=== PATIENT | female | born 1945 | race Caucasian/White ===

== ENCOUNTER → 2017-11-08 10:12 | Outpatient (CLI) | payer MEDICARE, OTHER, SELFPAY ==
[2017-11-08 12:05] LABS: Absolute Lymphocyte Count 2.23 X10^3/ul (0.83-4.51); Absolute Neutrophil Count 4.5 X10^3/uL (2.0-7.7); Basophil# 0.02 X10^3/uL; Basophil% 0.3 % (0-1); Eosinophil# 0.05 X10^3/uL; Eosinophils% 0.7 % (0-5); Hematocrit 44.7 % (37-47); Lymphocyte # 2.23 X10^3/ul (4.0); Lymphocyte % 30.3 % (19-41); Mean Corp Hgb Conc 33.6 g/gl (32-36); Mean Corpuscular Hgb 31.1 pg (27.0-32.0); Mean Corpuscular Volume 92.5 fL (81-99); Mean Platelet Vol. 9.3 fl (6.2-12.0); Monocyte# 0.56 X10^3/uL; Monocyte% 7.6 % (0-10); POSITIVE COUNT NO; POSITIVE DIFFERENTIAL NO; POSITIVE MORPHOLOGY NO; Platelet Count 389 K/mm3 (150-450); RBC Distribution Width CV 12.5 % (11.6-14.6); RBC Distribution Width SD 41.7 fl (35.1-43.9); Red Blood Count 4.83 M/mm3 (4.2-5.4); White Blood Count 7.4 K/mm3 (4.4-11.0)
[2017-11-08 12:22] LABS: Vitamin D,25 Hydroxy 54.9 ng/mL (29.95-100.01)
[2017-11-08 12:26] LABS: Anion Gap 8 (5-15); BUN 7 mg/dL (7-18); BUN/Creat Ratio 11.7 RATIO (10-20); Calcium,Total 8.9 mg/dL (8.5-10.1); Chloride 99 mmol/L (98-107); EST Glomerular Filtration Rate 104 mL/min (>60); Est Glom Filt Rate - Afr Amer 126 mL/min (>60); Glucose 93 mg/dL (74-106); Potassium 3.3 mmol/L (3.5-5.1); Sodium Level 136 mmol/L (136-145); T4 Free Direct 1.02 ng/dL (0.76-1.46); Thyroid Stim Hormone (TSH) 1.47 uIU/mL (0.358-3.74)
== END ==
PROVIDERS: Family Provider Family Medicine; PCP Family Medicine; Visit Provider Family Medicine
DX: E55.9 Vitamin D deficiency, unspecified (principal); E78.5 Hyperlipidemia, unspecified; I10 Essential (primary) hypertension; M81.0 Age-related osteoporosis without current pathological fracture
CPT/HCPCS: 36415; 80048; 82306; 84439; 84443; 85025

== ENCOUNTER → 2017-11-22 11:31 | Outpatient (CLI) | payer MEDICARE, OTHER, SELFPAY ==
[2017-11-22 15:41] LABS: Anion Gap 12 (5-15); BUN 6 mg/dL (7-18); BUN/Creat Ratio 10.8 RATIO (10-20); Calcium,Total 9.3 mg/dL (8.5-10.1); Chloride 99 mmol/L (98-107); Creatinine, Serum 0.55 mg/dL (0.55-1.02); EST Glomerular Filtration Rate 114 mL/min (>60); Est Glom Filt Rate - Afr Amer 138 mL/min (>60); Glucose 88 mg/dL (74-106); Potassium 3.4 mmol/L (3.5-5.1); Sodium Level 138 mmol/L (136-145)
== END ==
PROVIDERS: Family Provider Family Medicine; PCP Family Medicine; Visit Provider Family Medicine
DX: I10 Essential (primary) hypertension (principal)
CPT/HCPCS: 36415; 80048

== ENCOUNTER 2017-12-23 06:30 | Day surgery (SDC) | payer MEDICARE, OTHER, SELFPAY ==
[2017-12-23] VITALS (7 sets, daily range): BP systolic 88–130; BP diastolic 57–70; PULSE 76–84; RESP 16; TEMP 36.2–36.9; O2SAT 93–97
--- NOTE | 2017-12-23 08:00 | LES_PTH ---
PATIENT: DANIA NOBLE LOC: [facility] [place] U#:[id number] AGE/SX: 72/F ROOM: RE12/23/[address]: Dr. Macario Teran MD : [id number] BED: DIS: 12/23/2017 SPEC #: [id number] RECD: 12/23/17 14:50 STATUS: ARSLAN KATHY #: [id number] FERMÍN: 12/23/17 08:[address]: Macario Teran DEPT: SURGICAL PATHOLOGY RECD BY: Bree Hernández ENTERED: 12/24/17 08:49 SP TYPE: Lesion OTHR DR: Dr. Nirav Beckett MD Tissues: Cheek, NOS Procedures: Surgery Specimen Level III HEADER OPERATION: Excision infected cystic lesion left lower cheek at melolabial fold PRE-OP DIAGNOSIS: Infected cystic lesion left lower cheek at melolabial fold TISSUE SUBMITTED: Infected cystic lesion, left lower cheek at melolabial fold MICROSCOPIC DIAGNOSIS Infected cystic lesion, left lower cheek at melolabial fold, excision: Epidermal inclusion cyst. SJ:kelly 12/27/17 MICROSCOPIC DESCRIPTION Slides are reviewed. GROSS DESCRIPTION Received in fixative is one container labeled with the patient's name and designated infected cystic lesion, left lower cheek. The specimen consists of light seals skin with attached yellow fatty tissue measuring 0.9 x 0.9 cm and a depth of excision measuring 1 cm. A suture is present along one edge. This edge is inked in black ink. The opposite edge is inked in red ink. The specimen is bisected and totally submitted in one cassette. / AM:kelly 12/24/17 TC:5 CPT: 29943
[2017-12-23] MEDS: Mupirocin Ointment 22gm Tube 1 APPLIC (09:18)
--- NOTE | 2017-12-23 09:20 | PCM.IMDPSTOP ---
Immediate Post-Op Note Date of Procedure: 12/23/17 Primary Surgeon/Physician: Macario Teran manager of product: None Pre-Operative Diagnosis: 1. 1 cm infected soft tissue mass left lower cheek/chin by cervicomandibular junction at melolabial fold. 2. Smoker. Post-Operative Diagnosis: Same. Surgery/Procedure Performed:: Excision 1 cm infected soft tissue mass left lower cheek/chin by cervicomandibular junction at melolabial fold with transposition skin flap reconstruction (4 cm2). Description of Surgical Findings:: 72 year old woman presents for evaluation of an infected soft tissue mass left lower cheek/chin by cervicomandibular junction at melolabial fold that she has had for about a year. There had been some recent redness and swelling, and the infection resolved with some antibiotics. She denies any fever. She denies any recent drainage. She has been putting an Fco salve on it which she states has helped shrink the size of the lesion. Today the patient underwent excision 1 cm infected soft tissue mass left lower cheek/chin by cervicomandibular junction at melolabial fold with transposition skin flap reconstruction (4 cm2). Estimated Blood Loss: 2 ml. Specimen's removed: Infected soft tissue mass left lower cheek/chin by cervicomandibular junction at melolabial fold to Pathology and Microbiology. Drains: None. Type of Anesthesia:: Local MAC - xylocaine with epinephrine and IV sedation. - Admit VTE Documentation VTE Present on Admission: No VTE Mechan Device Prophylaxis: SCD's VTE Pharm Prophylaxis ordered?: No
--- NOTE | 2017-12-23 09:36 | PCM.DC ---
You will use the following diet at home:: No restrictions Discharge Activity: May not drive while taking narcotic pain medications., - - keep head elevated. no heavy lifting. May shower in (days): 2 May resume sexual activity in: No Restrictions Ice area for (Minutes): 5 - as needed for facial swelling. Weight Bearing Status: Weight bearing as tolerated Lifting Restrictions: 20 lbs. Keep extremity elevated above heart level: - - elelvate head. Call your doctor if your incision/area has: Continuous Slow Oozing, Sudden Increased Bleeding, Increased Pain/ Swelling, Increased Redness, Foul Smelling Discharge, Swelling at the incision site Call your doctor if you observe: Fever of 101 or Higher, Coldness, Increased Pain, Shortness of breath, Chest pain, Calf discomfort, Uncontrolled pain Suture Line Care: - - apply antibiotic ointment to suture line daily. Cleanse incision/area with: - - may get incision wet in the shower in two days. Allergies/Adverse Reactions: Allergies Sulfa (Sulfonamide Antibiotics) Adverse Reaction (Verified 12/16/17 10:16) Diarrhea BAND AID Allergy (Uncoded 12/16/17 10:18) Rash Medications to take at Discharge Biotin [Hernando Biotin] 5,000 mcg PO DAILY 10/22/14 Calcium Carbonate/Vitamin D3 [Calcium 600-Vit D3 800 Caplet] 1 ea PO DAILY 10/22/14 Cholecalciferol (VIT D3) [Vitamin D3] 2,000 unit PO DAILY 10/22/14 Cyanocobalamin (Vitamin B-12) [Vitamin B-12] 1,000 mcg SL DAILY 10/22/14 Flaxseed Oil/[place] 3,6,9 [Sv Flaxseed Oil 1,300 mg Sftgl] 1 ea PO DAILY 10/22/14 Hydrochlorothiazide [Hctz] 25 mg PO DAILY 10/22/14 Losartan Potassium [Cozaar] 100 mg PO DAILY 10/22/14 Multivitamins,Therapeutic [Multivitamin] 1 tab PO DAILY 10/22/14 Nortriptyline HCl [Pamelor] 25 mg PO QHS 10/22/14 Potassium Chloride [K-Dur] 20 meq PO TID 10/22/14 amlodipine 5 mg tablet 5 mg PO QDAY 11/24/17 psyllium seed (with dextrose) oral powder 3.4 g PO QDAY g 11/24/17 vitamin E (dl, acetate) 400 unit capsule 400 unit PO QDAY 11/24/17 L. Acidophilus/Pectin, [place] [Acidophilus-Pectin Captab] 1 each PO DAILY 12/16/17 Clindamycin HCl [Cleocin] 300 mg PO TID #21 cap 12/23/17 Lactobacillus Acidophilus/Fos [Acidophilus Probiotic Tablet] 1 ea PO BID #15 tab 12/23/17 Oxycodone HCl/Acetaminophen [Percocet 5/325] 1 tab PO 4X/DAY PRN PRN 5 Days #20 tab 12/23/17 The following prescriptions were given: Oxycodone HCl/Acetaminophen [Percocet 5/325] 1 tab PO 4X/DAY PRN PRN 5 Days #20 tab PRN Reason: Pain Lactobacillus Acidophilus/Fos [Acidophilus Probiotic Tablet] 1 ea PO BID #15 tab Clindamycin HCl [Cleocin] 300 mg PO TID #21 cap Primary Care Physician: Nirav Beckett MD [Primary Care Provider] - Test Results: Test results from this visit will be discussed in further detail at your follow-up appointment, if applicable. Please Follow Up With: Macario Teran MD When: one week. call [phone] for appt. Proposed Discharge Date: 12/23/17
--- NOTE | 2017-12-23 19:31 | PCM.OPRPT ---
Report of Operation Date of Procedure: 12/23/17 Pre-Operative Diagnosis: 1. 1 cm infected soft tissue mass left lower cheek/chin by cervicomandibular junction at melolabial fold. 2. Smoker. Post-Operative Diagnosis: Same. Surgery/Procedure Performed:: Excision 1 cm infected soft tissue mass left lower cheek/chin by cervicomandibular junction at melolabial fold with transposition skin flap reconstruction (4 cm2). Description of Surgical Findings:: 72 year old woman presents for evaluation of an infected soft tissue mass left lower cheek/chin by cervicomandibular junction at melolabial fold that she has had for about a year. There had been some recent redness and swelling, and the infection resolved with some antibiotics. She denies any fever. She denies any recent drainage. She has been putting an Yarsani salve on it which she states has helped shrink the size of the lesion. Patient was informed of the risks and complications of the procedure including alternatives to surgery. These were discussed with the patient personally. Patient voices understanding and wishes to proceed. Some of the risks and complications were included in a form from the [employer]. Encouraged patient to stop smoking as it may have deleterious effects on wound healing. materials planning analyst: None Type of Anesthesia:: Local MAC - xylocaine with epinephrine and IV sedation. Specimen's removed: Infected soft tissue mass left lower cheek/chin by cervicomandibular junction at melolabial fold to Pathology and Microbiology. Drains: None. Estimated Blood Loss (mL): 2 ml. Description of Procedure: Patient was taken to OR in supine position and was given IV sedation. Her face was prepped and draped in the usual fashion. SCD's were placed for DVT prophylaxis. Perioperative antibiotics were given intravenously. Using xylocaine with epinephrine, the infected soft tissue mass left lower cheek/chin by cervicomandibular junction at melolabial fold was infiltrated. After waiting 5 minutes for the anesthetic to take effect, I excised the mass down into the subcutaneous tissue. A lot of scar tissue was present indicative of chronic infection and was excised. No pus was seen. The mass was adherent to the underlying facial musculature and was excised off the muscle. The overlying skin was adherent to the mass and was also excised. The mass was sent to Pathology for analysis to rule out carcinoma. A portion was also sent to Microbiology for culture. A positive culture will necessitate antibiotic therapy. Hemostasis was obtained with electrocautery. I designed a transposition skin flap adjacent to the defect and parallel to the melolabial fold. Markings were infiltrated with xylocaine with epinephrine. Incisions were made and the flap was raised on a subcutaneous pedicle down to the level of the facial musculature. The flap was easily transposed into the defect with minimal tension and minimal distortion. Hemostasis was obtained with electrocautery. Once the flap was transposed into the defect, the incisions were closed in a layered fashion. The deep dermis and subcutaneous tissue was approximated with 5-0 Monocryl interrupted sutures. The skin was approximated with 6-0 Prolene simple interrupted sutures. Steri-strips were applied followed by antibiotic ointment. The size of the defect and the size of the flap needed to close the defect was 4 cm2. Patient tolerated the procedure well and was sent to PACU in satisfactory condition. She will be sent home on antibiotics and pain medication. She will keep her head elevated during the initial postop period. She will have a lifting restriction. She will followup in the office in a week for a wound check as well as for discussion of the pathology report and for removal of the sutures. Grafts/Implants Used: None. - Complications None. - Admit VTE Documentation VTE Present on Admission: No VTE Mechan Device Prophylaxis: SCD's VTE Pharm Prophylaxis ordered?: No Code Visit Surgery Charges CPT - 03628 ICD-10 - L03.211, R22.0, F17.200
== END 2017-12-23 10:27 | disposition home or self-care (01) ==
LOC: SDC 07:32 → AC 07:32
PROVIDERS: Family Provider Family Medicine; PCP Family Medicine; Visit Provider Surgery
PROC: (CPT 14040; principal; 2017-12-23 07:50)
DX: L72.0 Epidermal cyst (principal); L03.211 Cellulitis of face; F17.200 Nicotine dependence, unspecified, uncomplicated; I10 Essential (primary) hypertension
CPT/HCPCS: 00300; 14040; 87070; 87075; 87102; 87186; 87205; 87206; 88304; 88305; J7120

== ENCOUNTER → 2018-05-27 10:35 | Outpatient (CLI) | payer MEDICARE, OTHER, SELFPAY ==
[2018-05-27 12:18] LABS: Absolute Lymphocyte Count 2.27 X10^3/ul (0.83-4.51); Absolute Neutrophil Count 4.5 X10^3/uL (2.0-7.7); Basophil# 0.02 X10^3/uL; Basophil% 0.3 % (0-1); Eosinophil# 0.04 X10^3/uL; Eosinophils% 0.5 % (0-5); Hematocrit 42.1 % (37-47); Hemoglobin 14.2 g/dl (12.0-15.0); Lymphocyte # 2.27 X10^3/ul (4.0); Lymphocyte % 30.5 % (19-41); Mean Corp Hgb Conc 33.7 g/gl (32-36); Mean Corpuscular Hgb 31.3 pg (27.0-32.0); Mean Corpuscular Volume 92.9 fL (81-99); Mean Platelet Vol. 9.2 fl (6.2-12.0); Monocyte# 0.63 X10^3/uL; Monocyte% 8.5 % (0-10); Neutrophil # 4.47 X10^3/uL (2.7-7.7); Neutrophil % 60.1 % (47-70); Platelet Count 392 K/mm3 (150-450); RBC Distribution Width CV 12.2 % (11.6-14.6); RBC Distribution Width SD 40.9 fl (35.1-43.9); Red Blood Count 4.53 M/mm3 (4.2-5.4); White Blood Count 7.4 K/mm3 (4.4-11.0)
[2018-05-27 12:20] LABS: POSITIVE COUNT NO; POSITIVE DIFFERENTIAL NO; POSITIVE MORPHOLOGY NO
[2018-05-27 12:36] LABS: Anion Gap 9 (5-15); BUN 8 mg/dL (7-18); BUN/Creat Ratio 14.4 RATIO (10-20); Calcium,Total 9.3 mg/dL (8.5-10.1); Chloride 100 mmol/L (98-107); Creatinine, Serum 0.56 mg/dL (0.55-1.02); EST Glomerular Filtration Rate 113 mL/min (>60); Est Glom Filt Rate - Afr Amer 137 mL/min (>60); Glucose 102 mg/dL (74-106); Potassium 3.3 mmol/L (3.5-5.1); Sodium Level 134 mmol/L (136-145); Thyroid Stim Hormone (TSH) 1.48 uIU/mL (0.358-3.74)
--- OUTSIDE RECORDS SUMMARY | 2018-07-31 19:23 | XMS RPT_ITS ---
:1945 Author Organization OHIP Care Team Providers Name Role Phone THONG BRITT Admitting Unavailable THONG BRITT Attending Unavailable THONG BRITT Referring Unavailable THONG BRITT Attending Unavailable THONG BRITT Referring Unavailable Nirav Beckett Attending Unavailable Sujit, Nirav Primary Care Unavailable Nirav Beckett Attending Unavailable Sujit, Nirav Primary Care Unavailable Nirav Beckett Attending Unavailable Sujit, Nirav Primary Care Unavailable Ziyad Teran Attending Unavailable Sujit, Nirav Referring Unavailable Sujit, Nirav Primary Care Unavailable Ziyad Teran Attending Unavailable Ziyad Teran Referring Unavailable Sujit, Nirav Primary Care Unavailable Ziyad Teran Attending Unavailable Sujit, Nirav Primary Care Unavailable Ziyad Teran Consulting Unavailable Sujit, Nirav Referring Unavailable Ziyad Teran Attending Unavailable Sujit, Nirav Referring Unavailable Sujit, Nirav Primary Care Unavailable Ziyad Teran Attending Unavailable Nirav Beckett Referring Unavailable Nirav Beckett Primary Care Unavailable PROBLEMS PROBLEMS DATE TYPE CONDITION / CODE ATTENDING STATUS SOURCE 05/17/2018 Active Pain in left THONG BRITT Active [facility] finger(s) / Clinic Other M79.645(ICD-10) [facility] 05/17/2018 Active Primary THONG BRITT Active [facility] osteoarthritis, left Clinic Other hand / [facility] M19.042(ICD-10) Repository 05/27/2018 Unknown I10 - Essential Nirav Beckett Active [place] (primary) Community hypertension / Hospital I10(ICD-10) Repository 05/27/2018 Unknown F41.9 - Anxiety Nirav Beckett Active [place] disorder, Community unspecified / Hospital F41.9(ICD-10) Repository 05/27/2018 Unknown E87.6 - Hypokalemia Nirav Beckett Active [place] / E87.6(ICD-10) [facility] Hospital Repository 05/27/2018 Unknown R53.83 - Other Nirav Beckett Active [place] fatigue / Community R53.83(ICD-10) Hospital Repository 05/16/2018 Active Pain, unspecified / NA Active [facility] R52(ICD-10) Clinic Main [facility] Repository 12/26/2017 Unknown G89.18 - Other acute Ziyad Teran Active [place] postprocedural pain Community / G89.18(ICD-10) Hospital Repository PROCEDURES PROCEDURES No Procedure Records FoundRESULTS RESULTS ANES POST Observed: 06/03/2018 Status: COMPLETED Source: [facility] 5:42 PM CLINIC OTHER CAMPUS REPOSITORY HNO ID: [id number] Author: Ellis Sanchez Service: Anesthesiology Author Type: Anesthesiologist Type: Anesthesia PostOp Filed: 06/03/2018 5:42 PM Note Text: POST ANESTHESIA EVALUATION NOTE SERVICE DATE: 06/03/2018 SERVICE TIME: 3 : 1945 Vitals: 06/03/18 1208 06/03/18 1400 06/03/18 1515 Temp: 36.3 ?C (97.3 ?F) 36.4 ?C (97.5 ?F) 36.5 ?C (97.7 ?F) 06/03/18 1400 06/03/18 1415 06/03/18 1430 06/03/18 1515 BP: 130/62 137/63 136/66 135/65 06/03/18 1400 06/03/18 1415 06/03/18 1430 06/03/18 1515 Pulse: 91 83 78 72 06/03/18 1400 06/03/18 1415 06/03/18 1430 06/03/18 1515 Resp: 16 16 16 16 06/03/18 1400 06/03/18 1415 06/03/18 1430 06/03/18 1515 SpO2: 97% 97% 97% 99% Validated Vital Signs: Yes POST ANES STATUS: No apparent anesthetic complications. The patient is appropriately hydrated with stable respiratory and cardiovascular status. Patient has safe and adequate airway control. The patient has appropriate pain relief and no significant post operative nausea or vomiting. The patient has achieved baseline mental status. Further assessment by Anesthesia Service: None Other Remarks: SIGNATURE: Ellis Sanchez MD PATIENT NAME: Nelly Noble DATE: June 03, 2018 TIME: 5:42 PM PAGER/CONTACT #: [id number] PT ED Observed: 06/03/2018 Status: COMPLETED Source: [place] 3:00 PM [facility] REPOSITORY HNO ID: [id number] Author: Veronica DawsonRn) Luisito RN Service: Nursing Author Type: Registered Nurse Type: Patient Education Filed: 06/03/2018 3:37 PM Note Text: POST OP LEARNING RESPONSE INSTRUCTION PROVIDED TO: Patient METHOD OF INSTRUCTION: Individual instruction PATIENT / FAMILY RESPONSE: Verbalizes understanding of: POST-OPERATIVE INSTRUCTIONS-Correct actions to take to reduce postoperative complications FOLLOW-UP PLAN: Complete - No need for follow-up SUPPLEMENTAL MATERIAL: None REFERRAL (RECOMMENDATION): None Electronically Signed By: Veronica Jorge RN In Department: [facility] NURSING PROG Observed: 06/03/2018 Status: COMPLETED Source: [place] 2:00 PM [facility] REPOSITORY HNO ID: [id number] Author: Veronica DawsonRn) CONNOR Jorge Service: Nursing Author Type: Registered Nurse Type: Nursing Progress Note Filed: 06/03/2018 3:33 PM Note Text: 1400 pt to PACU. AANDOx3. RESTREPO TCx4. Denies pain. L hand drsg DANDI. Elevated on pillow with ice pack on. +cap refill +sensation. VSS no s/sx of distress. 1500 d/c instructions given with @ BS. PIV d/c'd drsg on. 1520 pt d/c'd to home via wheelchair. XR FLUOROSCOPY Observed: 06/03/2018 Status: F Source: [place] 1:46 PM [facility] REPOSITORY * * *Final Report* * * DATE OF EXAM: Jun 03 2018 1:46PM MDR [id number] - XR FLUOROSCOPY / PROCEDURE REASON: LEFT THUMB IP JOINT FUSION * * * * Physician Interpretation * * * * INDICATION: LEFT THUMB IP JOINT FUSION TECHNIQUE: Fluoroscopy with 2 views of the left thumb Fluoroscopic Radiation Summary: Plane A, Air Kerma: 62.1 mGy Dose Area Product (DAP): 0.0 mGy*cmS2 Fluoro time: 3:29 min:sec FINDINGS/ IMPRESSION: Arthrodesis of the 1st IP joint with cannulated screw. Please refer to the performing LIP's report. Email Marketer: KAIT Transcribe Date/Time: Jun 03 2018 1:59P Dictated by : ZIYAD MC MD This examination was interpreted and the report reviewed and electronically signed by: ZIYAD MC MD on Jun 03 2018 1:59PM EST [id number] PT ED Observed: 06/03/2018 Status: COMPLETED Source: [place] 12:16 PM [facility] REPOSITORY HNO ID: [id number] Author: Desiree Mcintosh RN Service: (none) Author Type: Registered Nurse Type: Patient Education Filed: 06/03/2018 12:17 PM Note Text: PROCEDURE/SURGERY: left thumb artrodesis READINESS TO LEARN COGNITIVE ABILITY: Alert and oriented MOTIVATION TO LEARN: Eager FAMILY SUPPORT: High - Very involved in pt care PATIENT LEARNS BEST BY: Verbal Instruction FACTORS AFFECTING LEARNING: None PHYSICAL LIMITATIONS AFFECTING LEARNING: None Electronically Signed By: Desiree Mcintosh RN In Department: [facility] SURGERY NURSING PROG Observed: 06/03/2018 Status: COMPLETED Source: [place] 12:14 PM [facility] REPOSITORY HNO ID: [id number] Author: Desiree Ivey) CONNOR Mcintosh Service: (none) Author Type: Registered Nurse Type: Nursing Progress Note Filed: 06/03/2018 12:16 PM Note Text: @ 1146 Pt received to ASCU, ambulatory AND steady. Pt pleasant AND cooperative with care. @ 1215 Ready for procedure - @ bedside. ANES PREOP Observed: 06/03/2018 Status: COMPLETED Source: [facility] 11:34 AM CLINIC OTHER CAMPUS REPOSITORY O ID: [id number] Author: Ellis Sanchez Service: Anesthesiology Author Type: Anesthesiologist Type: Anesthesia PreOp Filed: 06/03/2018 11:34 AM Note Text: ANESTHESIOLOGY DAY OF SURGERY NOTE SERVICE DATE: 06/03/2018 SERVICE TIME: 11:34 AM : 1945 Procedure(s) (LRB): ARTHRODESIS INTERPHALANGEAL JOINT (Left) Surgeon(s): Thong Britt Estimated body mass index is 27.51 kg/m? as calculated from the following: Height as of 05/20/18: 149.9 cm (4' 11). Weight as of 05/20/18: 61.8 kg (136 lb 3.2 oz). Most recent hematocrit and potassium results: Hematocrit 41.4 04/05/2013 Potassium 3.6 04/05/2013 ANES DOS/PREOP NOTE: Vitals: There were no vitals filed for this visit. ACTIVE PROBLEM LIST Essential Hypertension, Benign Myalgia and Myositis, Unspecified Osteoporosis, Unspecified Other Affections of Shoulder Region, Not Elsewhere Classified Primary Localized Osteoarthrosis, Lower Leg Family History of Other Condition Tobacco Use Disorder Family History of Malignant Neoplasm of Gastrointestinal Tract Hyperlipidemia Pain in Limb Dermatophytosis of Nail Onychia and Paronychia of Toe Pain of Left Thumb Osteoarthritis of Finger, Left PAST MEDICAL HISTORY Diagnosis Date - Esophageal reflux Gastroesophageal reflux - Essential hypertension, benign - Mixed hyperlipidemia Hyperlipidemia - Myalgia and myositis, unspecified Fibromyalgia (myalgia and myositis) - Osteoarthrosis, unspecified whether generalized or localized, other specified sites Osteoarthritis - Osteoporosis, unspecified Osteoporosis PAST SURGICAL HISTORY Procedure Laterality Date - APPENDECTOMY - KNEE SCOPE,DIAGNOSTIC 09/30/2005 Arthroscopy, knee LEFT - PAST SURGICAL HISTORY OF bunionectomy left foot - PAST SURGICAL HISTORY OF uterus removed - TOTAL KNEE REPLACEMENT 01/28/09 [place] [facility]. Left side FAMILY HISTORY Problem Relation Age of Onset - Hypertension Mother - Osteoporosis Mother - Alzheimer's Disease Mother - other (Other) Father unknown - Alzheimer's Disease Maternal Aunt - Alzheimer's Disease Maternal Aunt - Alzheimer's Disease Maternal Aunt Social History: Social History Substance Use Topics - Smoking status: Current Every Day Smoker Packs/day: 0.50 Years: 45.00 Types: Cigarettes - Smokeless tobacco: Never Used - Alcohol use Yes Comment: 1 glass of red wine every day No current facility-administered medications on file prior to encounter. Current Outpatient Prescriptions on File Prior to Encounter: amLODIPine (NORVASC) 5 mg tablet Take 1 tablet by mouth once daily. biotin 5,000 mcg ODT Take 1 tablet by mouth once daily. potassium chloride SR (K-DUR) 20 mEq tablet Take 1 tablet by mouth three times daily. hydrochlorothiazide 25 mg tablet Take 1 tablet by mouth once daily. nortriptyline 25 mg capsule Take 1 capsule by mouth daily at bedtime. losartan (COZAAR) 100 mg tablet Take 1 tablet by mouth once daily. Cholecalciferol, Vitamin D3, (VITAMIN D-3) 2,000 unit ORAL Cap Take 1 capsule by mouth twice daily. COENZYME Q10-RED YEAST RICE 60 MG-600 MG CAP take two tabs daily GARLIC TAB pt takes 650mg daily vitamin b complex(B COMPLEX-VITAMIN B12 TAB) Take one(1) tablet daily. FOLIC ACID 1 MG TAB Take one(1) tablet daily. OTC PRODUCT calcium 1800 daily FLAXSEED OIL Take one(1) tablet daily. VITAMIN B-6 100 MG TAB Take one(1) tablet daily. DAILY MULTIVITAMIN TAB Take one(1) tablet daily. No current facility-administered medications for this encounter. Allergies: ALLERGIES Allergen Reactions - Thais [Fexofenadi* Vomiting - Augmentin [Amoxicil* Diarrhea - Diovan [Valsartan] Intolerance excessive sweating - Lipitor [Atorvastat* MYALGIA'S - Prinivil [Lisinopri* Rash, Cough - Sulfabenzamide Rash - Sulindac Hives - Zocor [Simvastatin] Intolerance DOS EXAM: Adequate NPO status: Yes Anesthetic risks, benefits, alternatives, personnel and consent discussed: Yes Patient agrees to proceed: Yes Previous Anesthesia: No history of adverse event. Airway Assessment: MP 2; Neck ROM: Full ROM without neurologic symptoms; Airway Evaluation: No significant abnormalities Symptoms of Sleep Apnea: None Dentition: Teeth intact Additional Physical Exam: Lungs: Patient health status unchanged since recent history and physical. See history and physical for exam findings. Cardiac: Patient health status unchanged since recent history and physical. See history and physical for exam findings. Additional Pertinent Findings: N/A Blood Products: Not anticipated for this procedure. Anesthetic Plan: General, Standard ASA Monitors Pain Management Plan: Parenteral or Oral ASA Class: 2 Other Medical Problems: None I have interviewed and examined the patient. I have reviewed the medical record and/or the pre-anesthesia evaluation, pertinent labs, and test results. Significant changes in the patient's condition since the History and Physical, not otherwise documented in primary service progress notes: No This contains updated information obtained within 48 hours of Surgery/Procedure. SIGNATURE: Ellis Sanchez MD PATIENT NAME: Nelly Noble DATE: June 03, 2018 TIME: 11:34 AM CSN: [id number] CBC W/DIFF, AUTOMATED Collected: 05/27/2018 Status: F Source: [place] 10:38 AM [facility] [place], [place] REPOSITORY TYPE CODE TESTS RESULT OUT OF RANGE REFERENCE UNITS LAB L100.1000 4.4-11.0 K/mm3 Normal WBC 7.4 LAB L100.1200 4.2-5.4 M/mm3 Normal RBC 4.53 LAB L100.1300 12.0-15.0 g/dl Normal HGB 14.2 LAB L100.1400 37-47 % Normal HCT 42.1 LAB L100.1500 81-99 fL Normal MCV 92.9 LAB L100.1600 27.0-32.0 pg Normal MCH 31.3 LAB L100.1700 32-36 g/gl Normal MCHC 33.7 LAB L100.1810 11.6-14.6 % Normal RDW CV 12.2 LAB L100.1820 35.1-43.9 fl Normal RDW SD 40.9 LAB L100.1900 150-450 K/mm3 Normal PLT 392 LAB L100.2000 6.2-12.0 fl Normal MPV 9.2 LAB L100.2100 47-70 % Normal NEUT% 60.1 LAB L100.2200 19-41 % Normal LY% 30.5 LAB L100.2300 0-10 % Normal MONO% 8.5 LAB L100.2400 0-5 % Normal EO% 0.5 LAB L100.2500 0-1 % Normal BASO% 0.3 LAB L100.2550 0.0-0.9 % Normal IM GRAN % 0.100 Result Comment: IG% - Immature Granulocytes (promyelocytes, myelocytes and metamyelocytes) > 1% indicates that a LEFT SHIFT is Present. LAB L100.2620 2.0-7.7 X10 3/uL Normal Absolute Neut 4.5 LAB L100.2720 0.83-4.51 X10 3/ul Normal Absolute Lymph 2.27 Performed By: #### L100.0100 #### [facility] [address] [place], [place], [id number] BASIC METABOLIC Collected: 05/27/2018 Status: F Source: [place]AC[place] PROFILE (BMP) 10:38 AM [facility] [place], [place] REPOSITORY TYPE CODE TESTS RESULT OUT OF RANGE REFERENCE UNITS LAB L501.0100 74-106 mg/dL Normal GLU 102 Result Comment: Fasting Glucose result from 100 to 125 mg/dL suggests IMPAIRED HOMEOSTASIS per A.D.A. criteria. Please note revised GLUCOSE reference range effective 2017. LAB L501.1000 7-18 mg/dL Normal BUN 8 LAB L501.1100 0.55-1.02 mg/dL Normal CREAT,SERUM 0.56 Result Comment: The validity of the calculated GFR AND GFRAA in patients over 70 years has not been determined. Clinical correlation is essential. LAB L501.1110 >60 mL/min Normal EST GFR 113 Result Comment: Non- GFR Calc LAB L501.1115 >60 mL/min Normal EST GFR - AA 137 Result Comment: GFR Calc LAB L501.1300 10-20 RATIO Normal BUN/CRE 14.4 LAB L501.2200 8.5-10.1 mg/dL CA Normal 9.3 LAB L501.5300 136-145 mmol/L Low NA 134 LAB L501.5600 3.5-5.1 mmol/L Low K 3.3 LAB L501.5900 98-107 mmol/L CL Normal 100 LAB L501.6100 21.0-32.0 mmol/L Normal CO2 25.0 LAB L501.6200 5-15 Normal GAP 9 Performed By: #### L500.2500, L501.9520 #### [facility] [address] [place], [place], [address] THYROID STIM HORMONE Collected: 05/27/2018 Status: F Source: [place] (TSH) 10:38 AM [facility] [place], [place] REPOSITORY TYPE CODE TESTS RESULT OUT OF RANGE REFERENCE UNITS LAB L501.9520 0.358-3.74 uIU/mL Normal TSH 1.48 Performed By: #### L500.2500, L501.9520 #### [facility] [address] [place], [address] NURSING PROG Observed: 05/20/2018 Status: COMPLETED Source: [place] 3:08 PM [facility] OTHER CAMPUS REPOSITORY HNO ID: [id number] Author: Zuleyma Ivey) CONNOR Lauren Service: Nursing Author Type: Registered Nurse Type: Nursing Progress Note Filed: 06/02/2018 7:29 AM Note Text: PACC Nurse Progress Note History AND Physical: PACC Visit Date: 05/20/18 Original HANDP Date: 05/20/18 ED visit Date: N/A Outside HANDP Scanned Date: N/A Labs Within Last 6 Months: N/A Imaging Within Last 12 Months: N/A Cardiac Testing: Final ekg pending from 05/20/18 Last Menstrual Period: LMP Date: N/A Postmenopausal >1yr: Yes, S/P Hysterectomy: Yes BMI Percentile (PEDS): N/A Risk Assessment: N/A Anesthesia Review: N/A Narrative: N/A Pre-op Considerations: N/A Chart Check: IN PROGRESS final ekg pending from 05/20/18 Zuleyma Lauren RN May 20, 2018 3:08 PM 06/02/18 7:30 am Final ekg pending --preliminary is NSR. Chart check complete CONNOR Baires HISTORY PHYSICAL Observed: 05/20/2018 Status: COMPLETED Source: [place] 1:56 PM [facility] [place] REPOSITORY HNO ID: [id number] Author: Blaire Bills (Pa) Service: (none) Author Type: Physician Monitor Worker Type: HANDP Filed: 05/20/2018 2:27 PM Note Text: HISTORY AND PHYSICAL EXAMINATION SERVICE DATE: 05/20/2018 SERVICE TIME: 1:56 PM PRIMARY CARE PHYSICIAN: Nirav Beckett MD REASON FOR VISIT: Nelly Noble is a 73 year old female who is scheduled for left thumb arthrodesis at the request of Dr. Thong Britt for consultation. My final recommendation will be communicated back to the requesting physician by way of shared medical record or letter. The patient has the following: ACTIVE PROBLEM LIST Essential Hypertension, Benign Myalgia and Myositis, Unspecified Osteoporosis, Unspecified Esophageal Reflux Other Affections of Shoulder Region, Not Elsewhere Classified Primary Localized Osteoarthrosis, Lower Leg Family History of Other Condition Tobacco Use Disorder Family History of Malignant Neoplasm of Gastrointestinal Tract Hyperlipidemia Pain in Limb Dermatophytosis of Nail Onychia and Paronychia of Toe Pain of Left Thumb Osteoarthritis of Finger, Left Subjective CHIEF COMPLAINT: left thumb pain HPI: 73 yo female with pain in the left thumb for yrs. She had a remote dog bite of the thumb down to the tendon. The thumb does not bend at this point and causes pain and unable to do certain movements of the hand like open a jar. No prior treatment. PAST MEDICAL HISTORY Diagnosis Date - Esophageal reflux Gastroesophageal reflux - Essential hypertension, benign - Mixed hyperlipidemia Hyperlipidemia - Myalgia and myositis, unspecified Fibromyalgia (myalgia and myositis) - Osteoarthrosis, unspecified whether generalized or localized, other specified sites Osteoarthritis - Osteoporosis, unspecified Osteoporosis PAST SURGICAL HISTORY Procedure Laterality Date - APPENDECTOMY - KNEE SCOPE,DIAGNOSTIC 09/30/2005 Arthroscopy, knee LEFT - PAST SURGICAL HISTORY OF bunionectomy left foot - PAST SURGICAL HISTORY OF uterus removed - TOTAL KNEE REPLACEMENT 01/28/09 [place] [facility]. Left side FAMILY HISTORY Problem Relation Age of Onset - Hypertension Mother - Osteoporosis Mother - Alzheimer's Disease Mother - other (Other) Father unknown - Alzheimer's Disease Maternal Aunt - Alzheimer's Disease Maternal Aunt - Alzheimer's Disease Maternal Aunt SOCIAL HISTORY: Social History Marital status: Spouse name: Years of education: Number of children: 2 Occupational History Occupation Employer Comment [employer] Social History Main Topics Smoking status: Current Every Day Smoker Packs/day: 0.50 Years: 45.00 Types: Cigarettes Smokeless tobacco: Never Used Alcohol use: Yes Comment: 1 glass of red wine every day Drug use: No Social History Narrative Does paintings (acrylics, water colors--wildlife, landscapes, portrait). dana Salgado. Prior to Admission medications as of 05/20/18 1406 Medication Sig Last Dose Taking amLODIPine (NORVASC) 5 mg tablet Take 1 tablet by mouth once daily. Taking Yes biotin 5,000 mcg ODT Take 1 tablet by mouth once daily. Taking Yes potassium chloride SR (K-DUR) 20 mEq tablet Take 1 tablet by mouth three times daily. Taking Yes hydrochlorothiazide 25 mg tablet Take 1 tablet by mouth once daily. Taking Yes nortriptyline 25 mg capsule Take 1 capsule by mouth daily at bedtime. Taking Yes losartan (COZAAR) 100 mg tablet Take 1 tablet by mouth once daily. Taking Yes Cholecalciferol, Vitamin D3, (VITAMIN D-3) 2,000 unit ORAL Cap Take 1 capsule by mouth twice daily. Taking Yes COENZYME Q10-RED YEAST RICE 60 MG-600 MG CAP take two tabs daily Taking Yes GARLIC TAB pt takes 650mg daily Taking Yes vitamin b complex(B COMPLEX-VITAMIN B12 TAB) Take one(1) tablet daily. Taking Yes OTC PRODUCT calcium 1800 daily Taking Yes FLAXSEED OIL Take one(1) tablet daily. Taking Yes DAILY MULTIVITAMIN TAB Take one(1) tablet daily. Taking Yes FOLIC ACID 1 MG TAB Take one(1) tablet daily. VITAMIN B-6 100 MG TAB Take one(1) tablet daily. No medication comments found. ALLERGIES Allergen Reactions - Thais [Fexofenadi* Vomiting - Augmentin [Amoxicil* Diarrhea - Diovan [Valsartan] Intolerance excessive sweating - Lipitor [Atorvastat* MYALGIA'S - Prinivil [Lisinopri* Rash, Cough - Sulfabenzamide Rash - Sulindac Hives - Zocor [Simvastatin] Intolerance REVIEW OF SYSTEMS: PAIN ASSESSMENT: General: No weight loss, malaise or fevers. Neuro: No history of TIA's, stroke, AFFILIATE MARKETING SPECIALIST tumor, impaired sensorium, hemiplegia, paraplegia or quadraplegia. No neurological symptoms or problems. Respiratory: Positive for Tobacco Use currently 4-5 cigs per day or less, Negative for Asthma, COPD, Home O2, URI < 2 weeks Cardiovascular: Positive for: Hypertension, Negative for Recent MS, Arrhythmia, Chest Pain, Valvular Heart Disease, DVT/PE GI: No history of GI symptoms or problems. No history of esophageal varices, recent ascites, or ETOH greater than 2 drinks per day. : No history of dysuria, frequency or incontinence,, stones or chronic kidney disease DOCUMENT REVIEW ATTORNEY: Negative for abnormal vaginal bleeding, abnormal vaginal discharge. : N/A, No LMP recorded. Patient has had a hysterectomy. Endocrine: No history of diabetes. Has not taken steroids within the past 30 days. No history of endocrinological symptoms or problems. Hematology: No history of bleeding or clotting disorder. Pt is not taking anti-coagulation or platelet medications. No history of hematological symptoms or problems. Oncology: No history of CA metastasis, chemo within 30 days, or radiotherapy within 90 days. Has not lost 10% of body wt in 6 months. No history of oncological symptoms or problems. Psych: No history of psychiatric symptoms or problems. Musculoskeletal: Negative for joint pain or swelling, back pain or muscle pain. Skin: Negative for lesions, rash and itching. Objective PHYSICAL EXAM: VITALS: BP 158/76 Pulse 108 Temp 98.6 Ht 4' 11 (1.50m) Wt 136 lb 3.2 oz (61.8kg) SpO2 98% BMI 27.49 kg/(m2). General: Alert and oriented, No acute distress, Healthy appearance Skin: Normal color, no rash, no lesions. HEENT: EOM, pupils equal, round and reactive. Cardiovascular: Normal S1 AND S2, no rubs, murmurs or gallops. No JVD. Pulse regular. Lungs: Normal breath sounds, no wheezes or crackles. Abdomen: Soft, non-tender, no rigidity. Extremities: left thumb deformity Neurological: Normal cognition and motor skills. Gait normal. No weakness or sensory deficit. Pulses: Carotid and radial pulses normal +2. Diagnostic tests reviewed for today's visit: Lab Value Units Date High Low HB No results within date range. HCT No results within date range. WBC No results within date range. PLT No results within date range. NA No results within date range. K No results within date range. GLUC No results within date range. BUN No results within date range. CREAT No results within date range. PTSEC No results within date range. INR No results within date range. APTT No results within date range. ALT No results within date range. AST No results within date range. TBILI No results within date range. TSH No results within date range. Lab Value Units Date High Low HCGQT No results within date range. UHCG No results within date range. HCG, BODY* No results within date range. Lab Value Units Date High Low ABORHD No results within date range. ABSCREEN No results within date range. No results found for: HBA1C Most recent labs November 2017 Care [facility] Assessment ASSESSMENT HTN - fairly controlled Tobacco use 4-5 cigs per day- h/o 45 pk yrs METS: Climb a flight of stairs or walk up a hill (5.50 METs) ASA Class: 2 ANESTHESIA FINDINGS: Intubation History: No history of difficult intubation Significant Anesthesia Considerations: None Airway Exam: General: Normal appearance Mallampati Score is CLASS I ULBT: Class I - Lower incisors can bite the upper lip above the ezequiel line Neck: Normal appearance and function, Distance from hyoid to mentum during neck extension is at least 3 finger breaths Mouth: Normal tongue size Dentition: Partial upper Airway History: No abnormal airway history STOP BANG Score: Criteria: Hypertension Age over 50 (73 year old) Score = 2 PLAN This patient is optimally prepared for surgery pending EKG. CONSULTS: Patient does not require consults for optimization at this time. The Following Tests/Procedures Have Been Initiated: Orders Placed This Encounter ECG COMPLETE W INTERPRETATION Planned Anesthetic: Per anesthesia choice Instructions Given to Patient: Patient given verbal and written preop instructions and voices comprehension and compliance. SIGNATURE: Blaire Bills PA-C PATIENT NAME: Nelly Noble DATE: May 20, 2018 TIME: 1:56 PM PAGER/CONTACT #: HOSP Observed: 05/17/2018 Status: COMPLETED Source: [facility] 12:00 AM CLINIC OTHER CAMPUS REPOSITORY Patient:Nelly Noble MRN: <[id number]> Height:4' 11(1.499 m) Weight:136 lb 3.2 oz (61.78 kg) Outpatient Medications as of 06/03/18: amLODIPine (NORVASC) 5 mg tablet biotin 5,000 mcg ODT potassium chloride SR (K-DUR) 20 mEq tablet hydrochlorothiazide 25 mg tablet nortriptyline 25 mg capsule losartan (COZAAR) 100 mg tablet Cholecalciferol, Vitamin D3, (VITAMIN D-3) 2,000 unit ORAL Cap COENZYME Q10-RED YEAST RICE 60 MG-600 MG CAP GARLIC TAB vitamin b complex(B COMPLEX-VITAMIN B12 TAB) FOLIC ACID 1 MG TAB OTC PRODUCT FLAXSEED OIL VITAMIN B-6 100 MG TAB DAILY MULTIVITAMIN TAB Admission/Clinic Administered Medications as of 06/03/18: lactated ringers infusion clindamycin iv piggyback 600 mg in D5W 50 mL (CLEOCIN) Problem List: Essential hypertension, benign [I10] Myalgia and myositis, unspecified [[id number]] Osteoporosis, unspecified [M81.0] Other affections of shoulder region, not elsewhere classified [M75.80] Primary localized osteoarthrosis, lower leg [M17.10] Family history of other condition [Z84.89] Tobacco use disorder [F17.200] Family history of malignant neoplasm of gastrointestinal tract [Z80.0] Hyperlipidemia [E78.5] Pain in limb [M79.609] Dermatophytosis of nail [B35.1] Onychia and paronychia of toe [L03.039] Pain of left thumb [M79.645] Osteoarthritis of finger, left [M19.042] Allergies: Thais [Fexofenadine Hcl] Augmentin [Amoxicillin-Pot Clavulanate] Diovan [Valsartan] Lipitor [Atorvastatin Calcium] Prinivil [Lisinopril] Sulfabenzamide Sulindac Zocor [Simvastatin] Date Verified: 06/03/18 Lab Values No results within the last 30 days for the following basenames: K,HCT Progress Notes ([facility]): Leena Merida Ma 05/17/2018 9:27 AM Signed Patient scheduled for Left IP fusion on 06/03/18. Surgical request completed. E-mail sent to Fernie Back for equipment needed. Surgery confirmation letter and post op appointments mailed to patient. Need order for OT signed. Marcy Dumas [facility] 05/17/2018 9:58 AM Signed Noted in [place]. Kiera Basilio Ma 05/17/2018 11:43 AM Signed Patient has been scheduled as requested. My Engle PA-C 05/17/2018 5:04 PM Signed OT order signed. Leena Merida Ma 05/18/2018 11:26 AM Signed Order faxed to [employer] Progress Notes ([facility]): RT Maxine, Rubina 05/16/2018 1:31 PM Signed Radiology Service Progress Note PATIENT NAME: Nelly Noble DATE OF SERVICE: May 16, 2018 TIME: 1:20 PM PATIENT IDENTITY VERIFICATION COMPLETED USING TWO (2) METHODS: Patient confirmed name verbally and Date of . PATIENT GENDER DATA: Female. status: : No status: NO. PATIENT RELEVANT IMPLANT DATA REVIEWED: Not Applicable RADIOLOGY DEPARTMENT: General X-ray: Exam(s) Completed: Upper Extremity X-Ray(s): Fingers/Thumb, left : PERIPHERAL IV DATA: Not applicable SIGNED BY: RT Maxine May 16, 2018 1:20 PM PROGRESS Observed: 05/16/2018 Status: COMPLETED Source: [facility] 2:42 PM [facility] REPOSITORY HNO ID: [id number] Author: Thong Britt Service: (none) Author Type: Physician Type: Progress Notes Filed: 06/01/2018 7:33 AM Note Text: Thong Britt MD Department of Orthopaedics Orthopaedics [address] [facility] [address] Dept: [phone] Dept May 16, 2018 CHIEF COMPLAINT: New Patient (left thumb pain ) HPI: Ms. Nelly Noble is a 73 year old female who presents with a problem with her left thumb. Over time, it has become more crooked and at times painful though today 0 out of 10. Sharp pain when it happens and she has a difficult time opening up jars but she is also right-hand dominant and plays the piano and paints for leisure. ASSESSMENT: M79.645 Pain of left thumb (primary encounter diagnosis) M19.042 OA (osteoarthritis) of finger, left PLAN: We discussed multiple options. She is interested in surgical correction. The risks, benefits, alternatives and complications were discussed and she would like to move forward with a fusion of the IP joint. FOLLOW UP INSTRUCTIONS: We'll get her scheduled accordingly. Ms. Nelly Noble was advised as to contrast therapies and/or to take analgesics/anti-inflammatories as needed and all contraindications were reviewed. OBJECTIVE: Ms. Nelly Noble is a pleasant 73 year old in no apparent distress. Gen:BP 152/95 Pulse 110 Ht 4' 11 (1.50m) Wt 137 lb (62.1kg) BMI 27.66 kg/(m2). nl development, non obese, no deformities ENT: Normocephalic, normal hearing, moist mucosa CV: Pulses:Radial= 2+ and symmetric, capillary refill < 2 secs, no peripheral edema/varicosities Skin: no rash, bruising or lesions. Good turgor. Psych: cooperative and appropriate, alert and oriented x 3, good mood and affect. Musculoskeletal: Left thumb with an angular deformity at the IP joint. She has pain with passive and active motion. She is not able to have a pincer grasp at the tip of the thumb secondary to the deformity. Outward signs of osteoarthritis in multiple joints in both hands. Basal joint is swollen as crepitance, minimal pain though on grind testing. IMAGING: IMPRESSION: Findings as discussed under Results portion of report.. Email Marketer: KAIT ? Transcribe Date/Time: May 11:27A Dictated by : AZAR SINGH, DO This examination was interpreted and the report reviewed and electronically signed by: AZAR SINGH DO on May 11:29AM ?EST Results-Findings * * *Final Report* * * DATE OF EXAM: May ?1:30PM ? WRX ? 5318 ?- ?XR DIGIT 3V FRONTAL/LAT/OBL LT ?/ PROCEDURE REASON: Pain ?? ? * * * * Physician Interpretation * * * * ?LEFT thumb HISTORY: ?73 years old Clinical information: ?Pain ? ?limited range of motion of the left thumb after she ruptured the tendon 10 years ago. AP (May), Lateral and Oblique TECHNIQUE: Images: ?XR DIGIT 3V FRONTAL/LAT/OBL LT Comparison: ?None. RESULT: Findings: Marked bony demineralization. ?Severe narrowing of the IP joint with large amount of spurring along the lateral margin of the joint. ? There is subluxation laterally of the distal phalanx in relation to the proximal phalanx much which was present previously but the subluxation has increased since the previous study. No new fractures. Supporting Subjective Information Below: Past Medical History: PAST MEDICAL HISTORY Diagnosis Date - Esophageal reflux Gastroesophageal reflux - Essential hypertension, benign - Mixed hyperlipidemia Hyperlipidemia - Myalgia and myositis, unspecified Fibromyalgia (myalgia and myositis) - Osteoarthrosis, unspecified whether generalized or localized, other specified sites Osteoarthritis - Osteoporosis, unspecified Osteoporosis Past Surgical History: PAST SURGICAL HISTORY Procedure Laterality Date - APPENDECTOMY - KNEE SCOPE,DIAGNOSTIC 09/30/2005 Arthroscopy, knee LEFT - PAST SURGICAL HISTORY OF bunionectomy left foot - PAST SURGICAL HISTORY OF uterus removed - TOTAL KNEE REPLACEMENT 01/28/09 [facility]. Left side Family History: FAMILY HISTORY Problem Relation Age of Onset - Hypertension Mother - Osteoporosis Mother - other (Other [Other]) Father unknown - Alzheimer's Disease Mother - Alzheimer's Disease Maternal Aunt - Alzheimer's Disease Maternal Aunt - Alzheimer's Disease Maternal Aunt Social History:Social History Marital status: Spouse name: Years of education: Number of children: 2 Occupational History Occupation Employer Comment [employer] Social History Main Topics Smoking status: Current Every Day Smoker Packs/day: 0.50 Years: 45.00 Types: Cigarettes Smokeless tobacco: Never Used Alcohol use: Yes Comment: 1 glass of red wine every day Drug use: No Social History Narrative Does paintings (acrylics, water colors--wildlife, landscapes, portrait). Piano, organ. Medications: Current Outpatient Prescriptions: amLODIPine (NORVASC) 5 mg tablet Take 1 tablet by mouth once daily. biotin 5,000 mcg ODT Take 1 tablet by mouth once daily. potassium chloride SR (K-DUR) 20 mEq tablet Take 1 tablet by mouth three times daily. hydrochlorothiazide 25 mg tablet Take 1 tablet by mouth once daily. nortriptyline 25 mg capsule Take 1 capsule by mouth daily at bedtime. losartan (COZAAR) 100 mg tablet Take 1 tablet by mouth once daily. Cholecalciferol, Vitamin D3, (VITAMIN D-3) 2,000 unit ORAL Cap Take 1 capsule by mouth twice daily. GARLIC TAB pt takes 650mg daily vitamin b complex(B COMPLEX-VITAMIN B12 TAB) Take one(1) tablet daily. OTC PRODUCT calcium 1800 daily FLAXSEED OIL Take one(1) tablet daily. DAILY MULTIVITAMIN TAB Take one(1) tablet daily. ranitidine (ZANTAC) 150 mg ORAL tablet Take 1 tablet by mouth once daily as needed. COENZYME Q10-RED YEAST RICE 60 MG-600 MG CAP take two tabs daily FOLIC ACID 1 MG TAB Take one(1) tablet daily. VITAMIN B-6 100 MG TAB Take one(1) tablet daily. No current facility-administered medications for this visit. Allergies: Thais [Fexofenadine Hcl]; Augmentin [Amoxicillin-Pot Clavulanate]; Diovan [Valsartan]; Lipitor [Atorvastatin Calcium]; Prinivil [Lisinopril]; Sulfabenzamide; Sulindac; Zocor [Simvastatin] ROS: General (negative for fatigue, malaise, weight loss/gain) HEENT (negative for headache, earache, recent vision changes, sinus pain, sore throat) Respiratory (no recent shortness of breath, hemoptysis) CV (negative for chest tightness, palpitations) Musculoskeletal (see HPI) Psych (no depression, anxiety) REFERRING PHYSICIAN: Ms. Nelly Noble was referred to me for consultation by the following physician. This consultation note will be sent to the following physician by either mail or electronic medical record. SELF Nirav Beckett MD [address] [facility] [facility] [id number] This note was partially generated using [employer] voice recognition system, and there may be some incorrect words, spellings, and punctuation that were not noted in checking the note before saving. Thong Britt MD PROGRESS Observed: 05/16/2018 Status: COMPLETED Source: [facility] 2:16 PM [facility] REPOSITORY HNO ID: [id number] Author: Kiera Basilio Ma Service: (none) Author Type: (none) Type: Progress Notes Filed: 06/01/2018 7:33 AM Note Text: AMB ROOMING INTAKE FLOWSHEET DATA Risk Screening Do you have concerns about personal safety or safety in the home?: No Pain Pain Score: 0/10 Pain Location: Hand-Left Description: Sharp Duration Amount of Time: (ongoing) Frequency: Intermittent Intervention: Other: See comment (none ) Patient here today for evaluation of intermittent left thumb pain. She has difficulty opening jars. She is right hand dominant. New x-ray today at [facility]. CNOV Observed: 05/16/2018 Status: COMPLETED Source: [facility] 1:40 PM [facility] REPOSITORY Office Visit (JT) NELLY NOBLE ([id number]) 1945 F Date Time Provider Department 05/16/18 1:40 PM THONG BRITT During your visit today, we recorded the following information about you: Pulse Blood pressure Weight Height 110/minute 152/95 62.1 kg 1.499 m Kiera Basilio Ma 06/01/2018 7:33 AM Signed AMB ROOMING INTAKE FLOWSHEET DATA Risk Screening Do you have concerns about personal safety or safety in the home?: No Pain Pain Score: 0/10 Pain Location: Hand-Left Description: Sharp Duration Amount of Time: (ongoing) Frequency: Intermittent Intervention: Other: See comment (none ) Patient here today for evaluation of intermittent left thumb pain. She has difficulty opening jars. She is right hand dominant. New x-ray today at [facility]. Thong Britt MD 06/01/2018 7:33 AM Signed Thong Britt MD Department of Orthopaedics Orthopaedics [address] [facility] [address] Dept: [phone] Dept May 16, 2018 CHIEF COMPLAINT: New Patient (left thumb pain ) HPI: Ms. Nelly Noble is a 73 year old female who presents with a problem with her left thumb. Over time, it has become more crooked and at times painful though today 0 out of 10. Sharp pain when it happens and she has a difficult time opening up jars but she is also right-hand dominant and plays the piano and paints for leisure. ASSESSMENT: M79.645 Pain of left thumb (primary encounter diagnosis) M19.042 OA (osteoarthritis) of finger, left PLAN: We discussed multiple options. She is interested in surgical correction. The risks, benefits, alternatives and complications were discussed and she would like to move forward with a fusion of the IP joint. FOLLOW UP INSTRUCTIONS: We'll get her scheduled accordingly. Ms. Nelly Noble was advised as to contrast therapies and/or to take analgesics/anti-inflammatories as needed and all contraindications were reviewed. OBJECTIVE: Ms. Nelly Noble is a pleasant 73 year old in no apparent distress. Gen:BP 152/95 Pulse 110 Ht 4' 11 (1.50m) Wt 137 lb (62.1kg) BMI 27.66 kg/(m2). nl development, non obese, no deformities ENT: Normocephalic, normal hearing, moist mucosa CV: Pulses:Radial= 2+ and symmetric, capillary refill < 2 secs, no peripheral edema/varicosities Skin: no rash, bruising or lesions. Good turgor. Psych: cooperative and appropriate, alert and oriented x 3, good mood and affect. Musculoskeletal: Left thumb with an angular deformity at the IP joint. She has pain with passive and active motion. She is not able to have a pincer grasp at the tip of the thumb secondary to the deformity. Outward signs of osteoarthritis in multiple joints in both hands. Basal joint is swollen as crepitance, minimal pain though on grind testing. IMAGING: IMPRESSION: Findings as discussed under Results portion of report.. Email Marketer: KAIT ? Transcribe Date/Time: May 11:27A Dictated by : AZAR SINGH DO This examination was interpreted and the report reviewed and electronically signed by: AZAR SINGH DO on May 11:29AM ?EST Results-Findings * * *Final Report* * * DATE OF EXAM: May ?1:30PM ? WRX ? 5318 ?- ?XR DIGIT 3V FRONTAL/LAT/OBL LT ?/ PROCEDURE REASON: Pain ?? ? * * * * Physician Interpretation * * * * ?LEFT thumb HISTORY: ?73 years old Clinical information: ?Pain ? ?limited range of motion of the left thumb after she ruptured the tendon 10 years ago. AP (May), Lateral and Oblique TECHNIQUE: Images: ?XR DIGIT 3V FRONTAL/LAT/OBL LT Comparison: ?None. RESULT: Findings: Marked bony demineralization. ?Severe narrowing of the IP joint with large amount of spurring along the lateral margin of the joint. ? There is subluxation laterally of the distal phalanx in relation to the proximal phalanx much which was present previously but the subluxation has increased since the previous study. No new fractures. Supporting Subjective Information Below: Past Medical History: PAST MEDICAL HISTORY Diagnosis Date - Esophageal reflux Gastroesophageal reflux - Essential hypertension, benign - Mixed hyperlipidemia Hyperlipidemia - Myalgia and myositis, unspecified Fibromyalgia (myalgia and myositis) - Osteoarthrosis, unspecified whether generalized or localized, other specified sites Osteoarthritis - Osteoporosis, unspecified Osteoporosis Past Surgical History: PAST SURGICAL HISTORY Procedure Laterality Date - APPENDECTOMY - KNEE SCOPE,DIAGNOSTIC 09/30/2005 Arthroscopy, knee LEFT - PAST SURGICAL HISTORY OF bunionectomy left foot - PAST SURGICAL HISTORY OF uterus removed - TOTAL KNEE REPLACEMENT 01/28/09 [facility]. Left side Family History: FAMILY HISTORY Problem Relation Age of Onset - Hypertension Mother - Osteoporosis Mother - other (Other [Other]) Father unknown - Alzheimer's Disease Mother - Alzheimer's Disease Maternal Aunt - Alzheimer's Disease Maternal Aunt - Alzheimer's Disease Maternal Aunt Social History:Social History Marital status: Spouse name: Years of education: Number of children: 2 Occupational History Occupation Employer Comment [employer] Social History Main Topics Smoking status: Current Every Day Smoker Packs/day: 0.50 Years: 45.00 Types: Cigarettes Smokeless tobacco: Never Used Alcohol use: Yes Comment: 1 glass of red wine every day Drug use: No Social History Narrative Does paintings (acrylics, water colors--wildlife, landscapes, portrait). Piano, organ. Medications: Current Outpatient Prescriptions: amLODIPine (NORVASC) 5 mg tablet Take 1 tablet by mouth once daily. biotin 5,000 mcg ODT Take 1 tablet by mouth once daily. potassium chloride SR (K-DUR) 20 mEq tablet Take 1 tablet by mouth three times daily. hydrochlorothiazide 25 mg tablet Take 1 tablet by mouth once daily. nortriptyline 25 mg capsule Take 1 capsule by mouth daily at bedtime. losartan (COZAAR) 100 mg tablet Take 1 tablet by mouth once daily. Cholecalciferol, Vitamin D3, (VITAMIN D-3) 2,000 unit ORAL Cap Take 1 capsule by mouth twice daily. GARLIC TAB pt takes 650mg daily vitamin b complex(B COMPLEX-VITAMIN B12 TAB) Take one(1) tablet daily. OTC PRODUCT calcium 1800 daily FLAXSEED OIL Take one(1) tablet daily. DAILY MULTIVITAMIN TAB Take one(1) tablet daily. ranitidine (ZANTAC) 150 mg ORAL tablet Take 1 tablet by mouth once daily as needed. COENZYME Q10-RED YEAST RICE 60 MG-600 MG CAP take two tabs daily FOLIC ACID 1 MG TAB Take one(1) tablet daily. VITAMIN B-6 100 MG TAB Take one(1) tablet daily. No current facility-administered medications for this visit. Allergies: Thais [Fexofenadine Hcl]; Augmentin [Amoxicillin- Pot Clavulanate]; Diovan [Valsartan]; Lipitor [Atorvastatin Calcium]; Prinivil [Lisinopril]; Sulfabenzamide; Sulindac; Zocor [Simvastatin] ROS: General (negative for fatigue, malaise, weight loss/gain) HEENT (negative for headache, earache, recent vision changes, sinus pain, sore throat) Respiratory (no recent shortness of breath, hemoptysis) CV (negative for chest tightness, palpitations) Musculoskeletal (see HPI) Psych (no depression, anxiety) REFERRING PHYSICIAN: Ms. Nelly Noble was referred to me for consultation by the following physician. This consultation note will be sent to the following physician by either mail or electronic medical record. SELF Nirav Beckett MD [address] [facility] [address] This note was partially generated using Secure[employer] voice recognition system, and there may be some incorrect words, spellings, and punctuation that were not noted in checking the note before saving. Thong Britt MD Referring Provider: SELF [[id number]] Allergies As of Date: 05/16/2018 Noted Allergy Reaction THAIS (FEXOFENADINE HCL) 01/13/2005 11 - Vomiting AUGMENTIN (AMOXICILLIN-POT CLAVUL*01/13/2005 6 - Diarrhea DIOVAN (VALSARTAN) 02/01/2006 5 - Intolerance Comments: excessive sweating LIPITOR (ATORVASTATIN CALCIUM) 01/13/2005 Comments: MYALGIA'S PRINIVIL (LISINOPRIL) 01/13/2005 2 - Rash 3 - Cough SULFABENZAMIDE 09/25/2005 2 - Rash SULINDAC 01/13/2005 4 - Hives ZOCOR (SIMVASTATIN) 04/10/2009 5 - Intolerance Date Reviewed: 05/16/2018 Reviewed by: Thong Britt - Fully Assessed Reason for Visit: New Patient [172] Cmt: left thumb pain Primary Visit Diagnosis:Pain of left thumb [M79.645] Other Visit Diagnosis:OA (osteoarthritis) of finger, left [M19.042] Prescriptions as of 05/16/2018 Sig: AMLODIPINE 5 MG TABLET Take 1 tablet by mouth once d* BIOTIN 5,000 MCG DISINTEGRATI* Take 1 tablet by mouth once d* POTASSIUM CHLORIDE ER 20 MEQ * Take 1 tablet by mouth three * HYDROCHLOROTHIAZIDE 25 MG TAB* Take 1 tablet by mouth once d* NORTRIPTYLINE 25 MG CAPSULE Take 1 capsule by mouth daily* LOSARTAN 100 MG TABLET Take 1 tablet by mouth once d* CHOLECALCIFEROL (VITAMIN D3) * Take 1 capsule by mouth twice* GARLIC TABLET pt takes 650mg daily B COMPLEX-VITAMIN B12 TABLET Take one(1) tablet daily. OTC PRODUCT calcium 1800 daily FLAXSEED OIL Take one(1) tablet daily. DAILY MULTIVITAMIN TABLET Take one(1) tablet daily. X RANITIDINE 150 MG TABLET Take 1 tablet by mouth once d* COENZYME Q10-RED YEAST RICE 6* take two tabs daily FOLIC ACID 1 MG TABLET Take one(1) tablet daily. VITAMIN B-6 100 MG TABLET Take one(1) tablet daily. Medication notes this encounter RANITIDINE 150 MG TABLET >> Kiera Basilio Ma 05/16/2018 2:13 PM >> KIERA BASILIO MA WedMay 16, 2018 2:13 PM Not taking. FOLIC ACID 1 MG TABLET >> Kiera Basilio Ma 05/16/2018 2:14 PM >> KIERA BASILIO MA WedMay 16, 2018 2:14 PM Not taking. VITAMIN B-6 100 MG TABLET >> Kiera Basilio Ma 05/16/2018 2:14 PM >> KIERA BASILIO MA WedMay 16, 2018 2:14 PM No longer taking. Problem List As Of Date 05/16/2018 Noted Resolved BENIGN HYPERTENSION [I10] INVALID FOR* MYALGIA AND MYOSITIS NOS [FQX6144] INVALID FOR* OSTEOPOROSIS NOS [M81.0] INVALID FOR* ESOPHAGEAL REFLUX [K21.9] INVALID FOR* INT DERANGEMENT KNEE NOS [M23.90] INVALID FOR*11/16/2005 SPRAIN SHOULDER/ARM NOS [S43.409A, S46.919A] INVALID FOR*06/08/2006 SHOULDER REGION DIS NEC [M75.80] INVALID FOR* SPRAIN CRUCIATE LIG KNEE [S83.509A] INVALID FOR*06/08/2006 LOC PRIM OSTEOART-L/LEG [M17.10] INVALID FOR* OPEN WOUND HAND-COMPLICAT [S61.409A] INVALID FOR*12/28/2005 FAMILY HX-CONDITION NEC [Z84.89] INVALID FOR* More... TOBACCO USE DISORDER [F17.200] INVALID FOR* FAMILY HX GI MALIGNANCY [Z80.0] INVALID FOR* More... Sebaceous cyst [L72.3] INVALID FOR*10/31/2010 Hyperlipidemia [E78.5] INVALID FOR* Pain in limb [M79.609] INVALID FOR* Dermatophytosis of nail [B35.1] INVALID FOR* Onychia and paronychia of toe [L03.039] INVALID FOR* Medications Discontinued During This Encounter diltiazem CR 360 mg 24 hr capsule 90 c* 3 10/04/2012 05/16/2018 Class: [facility] Route: ORAL Sig: Take 1 capsule by mouth once daily. Disc: Course of therapy completed Encounter Status:Closed by THONG BRITT MD on 06/01/18 XR DIGIT 3V Observed: 05/16/2018 Status: F Source: [facility] FRONTAL/LAT/OBL LT 1:30 PM [facility] REPOSITORY * * *Final Report* * * DATE OF EXAM: May 16 2018 1:30PM WRX [id number] - XR DIGIT 3V FRONTAL/LAT/OBL LT / PROCEDURE REASON: Pain * * * * Physician Interpretation * * * * LEFT thumb HISTORY: 73 years old Clinical information: Pain limited range of motion of the left thumb after she ruptured the tendon 10 years ago. AP (May), Lateral and Oblique TECHNIQUE: Images: XR DIGIT 3V FRONTAL/LAT/OBL LT Comparison: None. RESULT: Findings: Marked bony demineralization. Severe narrowing of the IP joint with large amount of spurring along the lateral margin of the joint. There is subluxation laterally of the distal phalanx in relation to the proximal phalanx much which was present previously but the subluxation has increased since the previous study. No new fractures. IMPRESSION: Findings as discussed under Results portion of report.. Email Marketer: PSCB Transcribe Date/Time: May 17 2018 11:27A Dictated by : AZAR SINGH DO This examination was interpreted and the report reviewed and electronically signed by: AZAR SINGH DO on May 17 2018 11:29AM EST [id number] Observed: 05/16/2018 Status: COMPLETED Source: [facility] 1:20 PM [facility] REPOSITORY HNO ID: [id number] Author: Mariely () Rubina Claire Service: (none) Author Type: Plow Shaker Type: Progress Notes Filed: 05/16/2018 1:31 PM Note Text: Radiology Service Progress Note PATIENT NAME: Nelly Noble DATE OF SERVICE: May 16, 2018 TIME: 1:20 PM PATIENT IDENTITY VERIFICATION COMPLETED USING TWO (2) METHODS: Patient confirmed name verbally and Date of . PATIENT GENDER DATA: Female. status: : No status: NO. PATIENT RELEVANT IMPLANT DATA REVIEWED: Not Applicable RADIOLOGY DEPARTMENT: General X-ray: Exam(s) Completed: Upper Extremity X-Ray(s): Fingers/Thumb, left : PERIPHERAL IV DATA: Not applicable SIGNED BY: RT Maxine May 16, 2018 1:20 PM PLASTIC SURGERY Observed: 01/26/2018 Status: F Source: [place] VISIT REPORT 12:24 AM [facility] [place] [place] REPOSITORY [facility] [address] [place] [address] OFFICE VISIT Date of Service: 01/19/18 MR#: [id number] Acct: [id number] Name: NELLY NOBLE Rep #: [id number] : 1945 Provider: Ziyad Teran MD Age/Sex: 72/F Location: [facility] Status: Signed Intake Vital Signs01/19/18 Weight: 136 lb 01/19/18 Blood Pressure 173/91 01/19/18 Blood Pressure Location Lt brachial 01/19/18 Blood Pressure Position Sitting Intake Visit Reasons: postop surgery 12/23/17 Nursing Manager Required: No Accompanied by: None Is patient in pain?: No Allergies Sulfa (Sulfonamide Antibiotics) Adverse Reaction (Verified 12/29/17 12:18) Diarrhea BAND AID Allergy (Uncoded 12/29/17 12:18) Rash Medications Biotin [Hernando Biotin] 5,000 mcg PO DAILY 10/22/14 [History Confirmed 12/16/17] Calcium Carbonate/Vitamin D3 [Calcium 600-Vit D3 800 Caplet] 1 ea PO DAILY 10/22/14 [History Confirmed 12/16/17] Cholecalciferol (VIT D3) [Vitamin D3] 2,000 unit PO DAILY 10/22/14 [History Confirmed 12/16/17] Cyanocobalamin (Vitamin B-12) [Vitamin B-12] 1,000 mcg SL DAILY 10/22/14 [History Confirmed 12/16/17] Flaxseed Oil/Westby 3,6,9 [Sv Flaxseed Oil 1,300 mg Sftgl] 1 ea PO DAILY 10/22/14 [History Confirmed 12/16/17] Hydrochlorothiazide [Hctz] 25 mg PO DAILY 10/22/14 [History Confirmed 12/16/17] Losartan Potassium [Cozaar] 100 mg PO DAILY 10/22/14 [History Confirmed 12/16/17] Multivitamins,Therapeutic [Multivitamin] 1 tab PO DAILY 10/22/14 [History Confirmed 12/16/17] Nortriptyline HCl [Pamelor] 25 mg PO QHS 10/22/14 [History Confirmed 12/16/17] Potassium Chloride [K-Dur] 20 meq PO TID 10/22/14 [History Confirmed 12/16/17] amlodipine 5 mg tablet 5 mg PO QDAY 11/24/17 [History Confirmed 12/16/17] psyllium seed (with dextrose) oral powder 3.4 g PO QDAY g 11/24/17 [History Confirmed 12/16/17] vitamin E (dl, acetate) 400 unit capsule 400 unit PO QDAY 11/24/17 [History Confirmed 12/16/17] L. Acidophilus/Pectin, [place] [Acidophilus-Pectin Captab] 1 ea PO DAILY 12/16/17 [History Confirmed 12/16/17] Clindamycin HCl [Cleocin] 300 mg PO TID #21 cap 12/23/17 [Rx] Lactobacillus Acidophilus/Fos [Acidophilus Probiotic Tablet] 1 ea PO BID #15 tab 12/23/17 [Rx] Oxycodone HCl/Acetaminophen [Percocet 5/325] 1 tab PO 4X/DAY PRN PRN 5 Days #20 tab 12/23/17 [Rx] PFSH Medical History Arthritis (Acute) Back problem (Acute) Breast lump in female (Acute) Cataracts, bilateral (Acute) Fibromyalgia (Acute) High cholesterol (Acute) High triglycerides (Acute) Multiple allergies (Acute) Osteoarthritis (Acute) Osteopenia (Acute) Seborrheic keratosis (Acute) High blood pressure (Chronic) Surgical History H/O total hysterectomy (Acute) H/O tubal ligation (Acute) History of appendectomy (Acute) History of knee replacement (Acute) Pigmented skin lesion (Acute) Family History Mother High cholesterol Dementia Brother Abuse, drug or alcohol Father Colon cancer Social History Smoking Status: Current some day smoker alcohol intake: current substance use type: does not use additional social history: DOES NOT USE ASPIRIN DOES USE IBUPROFEN PRN FOR PAIN HPI postop surgery 12/23/17: Details: Postop visit from her recent surgery on 12/23/17 where she underwent excision 1 cm infected soft tissue mass left lower cheek/chin by cervicomandibular junction at melolabial fold with transposition skin flap reconstruction (4 cm2). Patient denies any complaints. Incision is healed. Swelling has resolved. Flap is healing well. Good contour noted on the left lower cheek/chin area. She can smile symmetrically. Pathology showed the lesion was an epidermal inclusion cyst. Microbiology showed Staphylococcus epidermidis. She was placed on Clindamycin perioperatively which was resistant. She was then placed on Levaquin and is finishing them. Massage incision with skin lotion on a daily basis to help soften up the scar. Followup on an as needed basis. Encouraged patient to stop smoking as it may have deleterious effects on wound healing. Assessment AND Plan Problems 1. Facial mass R22.0 2. Cellulitis of face L03.211 3. Epidermal inclusion cyst L72.0 4. Smoker F17.200 Coding Level of Care Code Global Post Op Diagnoses Facial mass R22.0 Cellulitis of face L03.211 Epidermal inclusion cyst L72.0 Smoker F17.200 01/26/18 0024 <Electronically signed by Ziyad Teran MD> Date Ziyad Teran MD Cosigner Signature: Date (if applicable) CC: PLASTIC SURGERY Observed: 01/11/2018 Status: F Source: [place] VISIT REPORT 4:59 PM [facility] [place] [place] REPOSITORY [facility] [address] [place] [address] OFFICE VISIT Date of Service: 12/29/17 MR#: [id number] Acct: [id number] Name: NELLY NOBLE Rep #: [id number] : 1945 Provider: Ziyad Teran MD Age/Sex: 72/F Location: [facility] Status: Signed Intake Vital Signs12/29/17 Blood Pressure 174/89 12/29/17 Blood Pressure Location Lt brachial 12/29/17 Blood Pressure Position Sitting 12/29/17 Respiratory Rate 16 Intake Visit Reasons: post op surgery 12/23/17 Nursing Manager Required: No Accompanied by: None Is patient in pain?: No Allergies Sulfa (Sulfonamide Antibiotics) Adverse Reaction (Verified 12/29/17 12:18) Diarrhea BAND AID Allergy (Uncoded 12/29/17 12:18) Rash Medications Biotin [Hernando Biotin] 5,000 mcg PO DAILY 10/22/14 [History Confirmed 12/16/17] Calcium Carbonate/Vitamin D3 [Calcium 600-Vit D3 800 Caplet] 1 ea PO DAILY 10/22/14 [History Confirmed 12/16/17] Cholecalciferol (VIT D3) [Vitamin D3] 2,000 unit PO DAILY 10/22/14 [History Confirmed 12/16/17] Cyanocobalamin (Vitamin B-12) [Vitamin B-12] 1,000 mcg SL DAILY 10/22/14 [History Confirmed 12/16/17] Flaxseed Oil/[place]by 3,6,9 [Sv Flaxseed Oil 1,300 mg Sftgl] 1 ea PO DAILY 10/22/14 [History Confirmed 12/16/17] Hydrochlorothiazide [Hctz] 25 mg PO DAILY 10/22/14 [History Confirmed 12/16/17] Losartan Potassium [Cozaar] 100 mg PO DAILY 10/22/14 [History Confirmed 12/16/17] Multivitamins,Therapeutic [Multivitamin] 1 tab PO DAILY 10/22/14 [History Confirmed 12/16/17] Nortriptyline HCl [Pamelor] 25 mg PO QHS 10/22/14 [History Confirmed 12/16/17] Potassium Chloride [K-Dur] 20 meq PO TID 10/22/14 [History Confirmed 12/16/17] amlodipine 5 mg tablet 5 mg PO QDAY 11/24/17 [History Confirmed 12/16/17] psyllium seed (with dextrose) oral powder 3.4 g PO QDAY g 11/24/17 [History Confirmed 12/16/17] vitamin E (dl, acetate) 400 unit capsule 400 unit PO QDAY 11/24/17 [History Confirmed 12/16/17] L. Acidophilus/Pectin, [place] [Acidophilus-Pectin Captab] 1 ea PO DAILY 12/16/17 [History Confirmed 12/16/17] Clindamycin HCl [Cleocin] 300 mg PO TID #21 cap 12/23/17 [Rx] Lactobacillus Acidophilus/Fos [Acidophilus Probiotic Tablet] 1 ea PO BID #15 tab 12/23/17 [Rx] Oxycodone HCl/Acetaminophen [Percocet 5/325] 1 tab PO 4X/DAY PRN PRN 5 Days #20 tab 12/23/17 [Rx] levofloxacin 500 mg tablet 500 mg PO DAILY #14 tab 12/30/17 [Rx Confirmed 12/30/17] Is last menstrual period known: No Post menopausal: Yes Patient : No PFSH Medical History Arthritis (Acute) Back problem (Acute) Breast lump in female (Acute) Cataracts, bilateral (Acute) Fibromyalgia (Acute) High cholesterol (Acute) High triglycerides (Acute) Multiple allergies (Acute) Osteoarthritis (Acute) Osteopenia (Acute) Seborrheic keratosis (Acute) High blood pressure (Chronic) Surgical History H/O total hysterectomy (Acute) H/O tubal ligation (Acute) History of appendectomy (Acute) History of knee replacement (Acute) Pigmented skin lesion (Acute) Family History Mother High cholesterol Dementia Brother Abuse, drug or alcohol Father Colon cancer Social History Smoking Status: Current some day smoker alcohol intake: current substance use type: does not use additional social history: DOES NOT USE ASPIRIN DOES USE IBUPROFEN PRN FOR PAIN HPI post op surgery 12/23/17: Details: Postop visit from her recent surgery on 12/23/17 where she underwent excision 1 cm infected soft tissue mass left lower cheek/chin by cervicomandibular junction at melolabial fold with transposition skin flap reconstruction (4 cm2). Patient denies any complaints. Incision is dry and intact. Minimal swelling present. Flap is healing well. Pathology was discussed with the patient. The lesion was an epidermal inclusion cyst. Microbiology was discussed with the patient. It showed Staphylococcus epidermidis. She was placed on Clindamycin perioperatively which is resistant. Will start Levaquin for 14 days (14 tabs) and 2 refills. Sutures were removed today without difficulty. Massage incision with skin lotion on a daily basis to help soften up the scar. Follow up 3 weeks. Encouraged patient to stop smoking as it may have deleterious effects on wound healing. Assessment AND Plan Problems 1. Facial mass R22.0 2. Cellulitis of face L03.211 3. Epidermal inclusion cyst L72.0 4. Smoker F17.200 Medications New: Coding Level of Care Code Global Post Op Diagnoses Facial mass R22.0 Cellulitis of face L03.211 Epidermal inclusion cyst L72.0 Smoker F17.200 01/08/18 1328 <Electronically signed by Ziyad Teran MD> Date Ziyad Teran MD 01/11/18 1659<Electronically signed by Bharti MALDONADO> Cosigner Signature: Date (if applicable) Bharti Hartley CC: OPERATIVE REPORT Observed: 12/26/2017 Status: F Source: [place] 9:14 PM [facility] [place], [place] REPOSITORY [facility] Medical Records Department [address] [place] [address] Operative Report 12/23/171930 MR#: [id number] Acct: [id number] Name: NELLY NOBLE Rep #: [id number] : 1945 72 From: Ziyad Teran MD PCP: Nirav Beckett MD Status: [facility] [place] [facility] [place] of Operation Date of Procedure: 12/23/17 Pre-Operative Diagnosis: 1. 1 cm infected soft tissue mass left lower cheek/chin by cervicomandibular junction at melolabial fold. 2. Smoker. Post-Operative Diagnosis: Same. Surgery/Procedure Performed:: Excision 1 cm infected soft tissue mass left lower cheek/chin by cervicomandibular junction at melolabial fold with transposition skin flap reconstruction (4 cm2). Description of Surgical Findings:: 72 year old woman presents for evaluation of an infected soft tissue mass left lower cheek/chin by cervicomandibular junction at melolabial fold that she has had for about a year. There had been some recent redness and swelling, and the infection resolved with some antibiotics. She denies any fever. She denies any recent drainage. She has been putting an Fco salve on it which she states has helped shrink the size of the lesion. Patient was informed of the risks and complications of the procedure including alternatives to surgery. These were discussed with the patient personally. Patient voices understanding and wishes to proceed. Some of the risks and complications were included in a form from the [employer] [employer]. Encouraged patient to stop smoking as it may have deleterious effects on wound healing. mixer wet pour: None Type of Anesthesia:: Local MAC - xylocaine with epinephrine and IV sedation. Specimen's removed: Infected soft tissue mass left lower cheek/chin by cervicomandibular junction at melolabial fold to Pathology and Microbiology. Drains: None. Estimated Blood Loss (mL): 2 ml. Description of Procedure: Patient was taken to OR in supine position and was given IV sedation. Her face was prepped and draped in the usual fashion. SCD's were placed for DVT prophylaxis. Perioperative antibiotics were given intravenously. Using xylocaine with epinephrine, the infected soft tissue mass left lower cheek/chin by cervicomandibular junction at melolabial fold was infiltrated. After waiting 5 minutes for the anesthetic to take effect, I excised the mass down into the subcutaneous tissue. A lot of scar tissue was present indicative of chronic infection and was excised. No pus was seen. The mass was adherent to the underlying facial musculature and was excised off the muscle. The overlying skin was adherent to the mass and was also excised. The mass was sent to Pathology for analysis to rule out carcinoma. A portion was also sent to Microbiology for culture. A positive culture will necessitate antibiotic therapy. Hemostasis was obtained with electrocautery. I designed a transposition skin flap adjacent to the defect and parallel to the melolabial fold. Markings were infiltrated with xylocaine with epinephrine. Incisions were made and the flap was raised on a subcutaneous pedicle down to the level of the facial musculature. The flap was easily transposed into the defect with minimal tension and minimal distortion. Hemostasis was obtained with electrocautery. Once the flap was transposed into the defect, the incisions were closed in a layered fashion. The deep dermis and subcutaneous tissue was approximated with 5-0 Monocryl interrupted sutures. The skin was approximated with 6-0 Prolene simple interrupted sutures. Steri-strips were applied followed by antibiotic ointment. The size of the defect and the size of the flap needed to close the defect was 4 cm2. Patient tolerated the procedure well and was sent to PACU in satisfactory condition. She will be sent home on antibiotics and pain medication. She will keep her head elevated during the initial postop period. She will have a lifting restriction. She will followup in the office in a week for a wound check as well as for discussion of the pathology report and for removal of the sutures. Grafts/Implants Used: None. - Complications None. - Admit VTE Documentation VTE Present on Admission: No VTE Mechan Device Prophylaxis: SCD's VTE Pharm Prophylaxis ordered?: No Code Visit Surgery Charges CPT - 20852 ICD-10 - L03.211, R22.0, F17.200 12/26/172113 <Electronically signed by Ziyad Teran MD> Date Ziyad Teran MD CC: iZyad Teran MD; Nirav Beckett MD Signed DISCHARGE INSTRUCTION Observed: 12/23/2017 Status: F Source: [place] 9:39 AM [facility] [place], [place] REPOSITORY [facility] Medical Records Department [address] [place] [address] Instructions for Home/Discharge Instructions 12/23/17 0936 MR#: [id number] Acct: [id number] Name: NELLY NOBLE Emelia Rep #: [id number] : 1945 72 From: Ziyad Teran MD PCP: Nirav Beckett MD Status: [place] [facility] [place] You will use the following diet at home:: No restrictions Discharge Activity: May not drive while taking narcotic pain medications., - - keep head elevated. no heavy lifting. May shower in (days): 2 May resume sexual activity in: No Restrictions Ice area for (Minutes): 5 - as needed for facial swelling. Weight Bearing Status: Weight bearing as tolerated Lifting Restrictions: 20 lbs. Keep extremity elevated above heart level: - - elelvate head. Call your doctor if your incision/area has: Continuous Slow Oozing, Sudden Increased Bleeding, Increased Pain/ Swelling, Increased Redness, Foul Smelling Discharge, Swelling at the incision site Call your doctor if you observe: Fever of 101 or Higher, Coldness, Increased Pain, Shortness of breath, Chest pain, Calf discomfort, Uncontrolled pain Suture Line Care: - - apply antibiotic ointment to suture line daily. Cleanse incision/area with: - - may get incision wet in the shower in two days. Allergies/Adverse Reactions: Allergies Sulfa (Sulfonamide Antibiotics) Adverse Reaction (Verified 12/16/17 10:16) Diarrhea BAND AID Allergy (Uncoded 12/16/17 10:18) Rash Medications to take at Discharge Biotin [Hernando Biotin] 5,000 mcg PO DAILY 10/22/14 Calcium Carbonate/Vitamin D3 [Calcium 600-Vit D3 800 Caplet] 1 ea PO DAILY 10/22/14 Cholecalciferol (VIT D3) [Vitamin D3] 2,000 unit PO DAILY 10/22/14 Cyanocobalamin (Vitamin B-12) [Vitamin B-12] 1,000 mcg SL DAILY 10/22/14 Flaxseed Oil/[place] 3,6,9 [Sv Flaxseed Oil 1,300 mg Sftgl] 1 ea PO DAILY 10/22/14 Hydrochlorothiazide [Hctz] 25 mg PO DAILY 10/22/14 Losartan Potassium [Cozaar] 100 mg PO DAILY 10/22/14 Multivitamins,Therapeutic [Multivitamin] 1 tab PO DAILY 10/22/14 Nortriptyline HCl [Pamelor] 25 mg PO QHS 10/22/14 Potassium Chloride [K-Dur] 20 meq PO TID 10/22/14 amlodipine 5 mg tablet 5 mg PO QDAY 11/24/17 psyllium seed (with dextrose) oral powder 3.4 g PO QDAY g 11/24/17 vitamin E (dl, acetate) 400 unit capsule 400 unit PO QDAY 11/24/17 L. Acidophilus/Pectin, [place] [Acidophilus-Pectin Captab] 1 each PO DAILY 12/16/17 Clindamycin HCl [Cleocin] 300 mg PO TID #21 cap 12/23/17 Lactobacillus Acidophilus/Fos [Acidophilus Probiotic Tablet] 1 ea PO BID #15 tab 12/23/17 Oxycodone HCl/Acetaminophen [Percocet 5/325] 1 tab PO 4X/DAY PRN PRN 5 Days #20 tab 12/23/17 The following prescriptions were given: Oxycodone HCl/Acetaminophen [Percocet 5/325] 1 tab PO 4X/DAY PRN PRN 5 Days #20 tab PRN Reason: Pain Lactobacillus Acidophilus/Fos [Acidophilus Probiotic Tablet] 1 ea PO BID #15 tab Clindamycin HCl [Cleocin] 300 mg PO TID #21 cap Primary Care Physician: Nirav Beckett MD [Primary Care Provider] - Test Results: Test results from this visit will be discussed in further detail at your follow-up appointment, if applicable. Please Follow Up With: Ziyad Teran MD When: one week. call [phone] for appt. Proposed Discharge Date: 12/23/17 12/23/17 0939 <Electronically signed by Ziyad Teran MD> Date Ziyad Teran MD CC: Nirav Beckett MD Observed: 12/23/2017 Status: F Source: [place] CULTURE, DEEP WOUND 8:45 AM [facility] [place], [place] REPOSITORY Order Date: 12/09/16 Comments: [facility] Gram Stain No organisms seen No cells seen Wound Culture Clinical correlation necessary, Possible skin contamination. ORGANISM 1: Staphylococcus epidermidis Amount Growth Very Rare Staphylococcus epidermidis: REACTION Benzylpenicillin NF >=0.5 R Cefoxitin *NF - Clindamycin $$ >=8 R Inducable Clindamycin Resistan - Erythromycin $ <=0.25 S Gentamicin $ <=0.5 S Levofloxacin $ <=0.12 S Linezolid $$$$ 1 S Oxacillin NF <=0.25 S Tigecycline $$$$ 0.5 S Rifampin $$ <=0.5 S Tetracycline NF >=16 R Vancomycin $ 1 S (NF) indicates non-formulary drug at [facility]. Approval by Infectious Disease Specialist required before non-formulary drugs may be ordered and/or dispensed. * CLSI guidelines does not recommend testing of cephalosporins. This interpretation is deduced from Beta-lactam/penicillin results. Cult, Anaerobic No growth in 5 days. Performed By: #### [id number] #### [facility] [address] [place], [address] Observed: 12/23/2017 Status: F Source: [place] JANIA, FUNGUS W/ 8:45 [facility] [id number] REPOSITORY Comments: infected cystic lesion left lower cheek at [facility]olab Is this test to exclude patient from TB Isolation? N Cu,[id number] TESTING PERFORMED AT [facility]. ORIGINAL REPORT ON FILE IN LAB CONTAINS ADDITIONAL TEST SITE INFORMATION. CUF No yeast or mold isolated after [address] [facility]. ORIGINAL REPORT ON FILE IN LAB CONTAINS ADDITIONAL TEST SITE INFORMATION. Fungus Stain No yeast or mold observed. Performed By: #### M600.1900 #### [facility] [address] [place], [address] LESION (CHOOSE SITE) Observed: 12/23/2017 Status: F Source: [place] 8:00 AM [facility] [place] REPOSITORY Patient: NELLY NOBLE : 1945 (72/F) Acct Num: [id number] Phys: Ziyad Teran MD Unit Num: [id number] Loc: [facility] [place] Specimen: [id number] Received: 12/23/17 - 1450 Spec Type: Lesion TISSUES TISSUES: Cheek, NOS GROSS DESCRIPTION Received in fixative is one container labeled with the patient's name and designated infected cystic lesion, left lower cheek. The specimen consists of light seals skin with attached yellow fatty tissue measuring 0.9 x 0.9 cm and a depth of excision measuring 1 cm. A suture is present along one edge. This edge is inked in black ink. The opposite edge is inked in red ink. The specimen is bisected and totally submitted in one cassette. / AM:kelly 12/24/17 TC:5 CPT: 37832 HEADER OPERATION: Excision infected cystic lesion left lower cheek at melolabial fold PRE-OP DIAGNOSIS: Infected cystic lesion left lower cheek at melolabial fold TISSUE SUBMITTED: Infected cystic lesion, left lower cheek at melolabial fold MICROSCOPIC DESCRIPTION Slides are reviewed. MICROSCOPIC DIAGNOSIS Infected cystic lesion, left lower cheek at melolabial fold, excision: Epidermal inclusion cyst. SJ:kelly 12/27/17 Signed Joseph Adorno 12/27/17 <signature on file> Performed By: #### PLES #### [facility] [address] [place], [address] PLASTIC SURGERY Observed: 12/10/2017 Status: F Source: [place] VISIT REPORT 1:06 PM [facility] [place] [place] REPOSITORY [facility] [address] [place] [address] OFFICE VISIT Date of Service: 11/24/17 MR#: [id number] Acct: [id number] Name: NELLY NOBLE Rep #: [id number] : 1945 Provider: Zyiad Teran MD Age/Sex: 72/F Location[place] [facility] [place] Status: Signed Intake Vital Signs11/24/17 Height 5 ft 1.5 in 11/24/17 Weight: 134 lb 8 oz Intake Visit Reasons: BUMP ON LT SIDE OF FACE, NEAR JAW Nursing Manager Required: No Accompanied by: None Is patient in pain?: Yes (FACE NEAR LOWER LIP LEFT SIDE PRESSURE) Allergies Sulfa (Sulfonamide Antibiotics) Adverse Reaction (Verified 11/24/17 11:00) Diarrhea Medications Biotin [Hernando Biotin] 5,000 mcg PO DAILY 10/22/14 [History Confirmed 11/24/17] Calcium Carbonate/Vitamin D3 [Calcium 600-Vit D3 800 Caplet] 1 ea PO DAILY 10/22/14 [History Confirmed 11/24/17] Cholecalciferol (VIT D3) [Vitamin D3] 2,000 unit PO DAILY 10/22/14 [History Confirmed 11/24/17] Cyanocobalamin (Vitamin B-12) [Vitamin B-12] 1,000 mcg SL DAILY 10/22/14 [History Confirmed 11/24/17] Flaxseed Oil/[place] 3,6,9 [Sv Flaxseed Oil 1,300 mg Sftgl] 1 ea PO DAILY 10/22/14 [History Confirmed 11/24/17] Hydrochlorothiazide [Hctz] 25 mg PO DAILY 10/22/14 [History Confirmed 11/24/17] Losartan Potassium [Cozaar] 100 mg PO DAILY 10/22/14 [History Confirmed 11/24/17] Multivitamins,Therapeutic [Multivitamin] 1 tab PO DAILY 10/22/14 [History Confirmed 11/24/17] Nortriptyline HCl [Pamelor] 25 mg PO QHS 10/22/14 [History Confirmed 11/24/17] Potassium Chloride [K-Dur] 20 meq PO TID 10/22/14 [History Confirmed 11/24/17] Vitamin E 1,000 unit PO DAILY 10/22/14 [History Confirmed 11/24/17] L. Acidophilus/Pectin, [place] [Acidophilus-Pectin Captab] 1 ea PO BID #10 tab 10/23/14 [Rx Confirmed 11/24/17] amlodipine 5 mg tablet 5 mg PO QDAY 11/24/17 [History Confirmed 11/24/17] psyllium seed (with dextrose) oral powder 3.4 g PO QDAY g 11/24/17 [History Confirmed 11/24/17] vitamin E (dl, acetate) 400 unit capsule 400 unit PO QDAY 11/24/17 [History Confirmed 11/24/17] Is last menstrual period known: No Post menopausal: Yes Patient : No PFSH Medical History Arthritis (Acute) Back problem (Acute) Breast lump in female (Acute) Cataracts, bilateral (Acute) Fibromyalgia (Acute) High cholesterol (Acute) High triglycerides (Acute) Multiple allergies (Acute) Osteoarthritis (Acute) Osteopenia (Acute) Seborrheic keratosis (Acute) High blood pressure (Chronic) Surgical History H/O total hysterectomy (Acute) H/O tubal ligation (Acute) History of appendectomy (Acute) History of knee replacement (Acute) Pigmented skin lesion (Acute) Family History Mother High cholesterol Dementia Brother Abuse, drug or alcohol Father Colon cancer Social History Smoking Status: Light Smoker (<10/day) alcohol intake: current substance use type: does not use additional social history: DOES NOT USE ASPIRIN DOES USE IBUPROFEN PRN FOR PAIN HPI BUMP ON LT SIDE OF FACE, NEAR JAW: Details: HISTORY OF PRESENT ILLNESS 72 year old woman presents for evaluation of an infected soft tissue mass left lower chin by cervicomandibular junction at melolabial fold that she has had for about a year. There had been some recent redness and swelling, and the infection resolved with some antibiotics. She denies any fever. She denies any recent drainage. She has been putting an Fco salve on it which she states has helped shrink the size of the lesion. She presents today for further evaluation and treatment. REVIEW OF SYSTEMS General - Denies fear, fatigue, and weight loss. Eyes - Denies cataracts and glaucoma. ENT - Denies nasal congestion and sore throat. Endocrine - Denies excessive thirst and urination. Skin - Has infected soft tissue mass left lower chin by cervicomandibular junction at melolabial fold. Denies skin cancer. Musculoskeletal - Denies joint pain, joint stiffness, weakness of muscles and joints, back pain, and arthritis. Neuro - Denies headaches. Cardiovascular - Denies chest pain, fatigue, and shortness of breath with exertion. Psych - Denies anxiety and depression. Respiratory - Denies chronic cough and shortness of breath. Patient is a smoker. Gastrointestinal - Denies nausea, vomiting, diarrhea, and constipation. Hematologic - Denies abnormal bruising and bleeding. Genitourinary - Denies hematuria and urinary frequency. PHYSICAL EXAM General - Alert and oriented. HEENT - PERRL. EOMI. Throat is clear. On the left lower chin by cervicomandibular junction at melolabial fold is a 1 cm soft tissue mass that is firm and raised in configuration. Nontender. No evidence of infection at the present time. The overlying skin is adherent. The mass appears mobile and not adherent to the underlying muscle. Neck - Supple and non-tender. No cervical adenopathy. No suspicious lesions noted. Lungs- Clear to auscultation. Heart - Regular rate and rhythm. Abdomen - Soft and non distended. Extremities - FROM. No axillary adenopathy. Radial pulses are palpable. No suspicious lesions noted. Neuro - CN II-XII grossly intact. Psych - Normal and mood and affect. ASSESSMENT 1. 1 cm infected soft tissue mass left lower chin by cervicomandibular junction at melolabial fold. 2. Smoker. PLAN Recommend excision of this infected soft tissue mass and send it to Pathology for analysis to rule out carcinoma. If carcinoma is present, then further excision will be done. Reconstruction will be with a local skin flap. If there is evidence of infection, a culture will be sent. A positive culture will necessitate antibiotic therapy. If pus is seen, then the wound would be left open and wound care started with Silver dressing changes daily. Surgery will be done under local anesthesia and IV sedation on an outpatient basis. Patient was informed of the risks and complications of the procedure including alternatives to surgery. These were discussed with her personally. She voices understanding and wishes to proceed. Some of the risks and complications were included in a form from the [employer]. Encouraged patient to stop smoking as it may have deleterious effects on wound healing. Assessment AND Plan Problems 1. cystic lsion left lower chin 2. Facial mass R22.0 3. Cellulitis of face L03.211 4. Smoker F17.200 Medications Discontinued: oxycodone-acetaminophen 5-325 mg Discontinued Reason1 - 2 tabs PO 4X/DAY PRN PRN Pain : Pt no longer taking clindamycin HCl Discontinued Reason: Pt no longer t300 mg PO TID aking Coding Level of Care Code Off vis,new,level 3 Diagnoses cystic lsion left lower chin Facial mass R22.0 Cellulitis of face L03.211 Smoker F17.200 12/09/17 0131 <Electronically signed by Ziyad Teran MD> Date Ziyad Teran MD 12/10/17 1306<Electronically signed by Bharti Hartley SALES DEVELOPMENT REPRESENTATIVE-C> Cosigner Signature: Date (if applicable) Bharti Hartley SALES DEVELOPMENT REPRESENTATIVE-C CC: Nirav Beckett MD BASIC METABOLIC Collected: 11/22/2017 Status: F Source: JACQUE PROFILE (BMP) 11:33 AM [facility] [place], [place] REPOSITORY TYPE CODE TESTS RESULT OUT OF RANGE REFERENCE UNITS LAB L501.0100 74-106 mg/dL Normal GLU 88 Result Comment: Please note revised GLUCOSE reference range effective 2017. LAB L501.1000 7-18 mg/dL Low BUN 6 LAB L501.1100 0.55-1.02 mg/dL Normal CREAT,SERUM 0.55 Result Comment: The validity of the calculated GFR AND GFRAA in patients over 70 years has not been determined. Clinical correlation is essential. LAB L501.1110 >60 mL/min Normal EST GFR 114 Result Comment: Non- GFR Calc LAB L501.1115 >60 mL/min Normal EST GFR - AA 138 Result Comment: GFR Calc LAB L501.1300 10-20 RATIO Normal BUN/CRE 10.8 LAB L501.2200 8.5-10.1 mg/dL CA Normal 9.3 LAB L501.5300 136-145 mmol/L NA Normal 138 LAB L501.5600 3.5-5.1 mmol/L Low K 3.4 LAB L501.5900 98-107 mmol/L CL Normal 99 LAB L501.6100 21.0-32.0 mmol/L Normal CO2 27.0 LAB L501.6200 5-15 Normal GAP 12 Performed By: #### L500.2500 #### [facility] [address] [place], [place], [id number] CBC W/DIFF, AUTOMATED Collected: 11/08/2017 Status: F Source: [place] 10:17 AM [facility] [place], [place] REPOSITORY TYPE CODE TESTS RESULT OUT OF RANGE REFERENCE UNITS LAB L100.1000 4.4-11.0 K/mm3 Normal WBC 7.4 LAB L100.1200 4.2-5.4 M/mm3 Normal RBC 4.83 LAB L100.1300 12.0-15.0 g/dl Normal HGB 15.0 LAB L100.1400 37-47 % Normal HCT 44.7 LAB L100.1500 81-99 fL Normal MCV 92.5 LAB L100.1600 27.0-32.0 pg Normal MCH 31.1 LAB L100.1700 32-36 g/gl Normal MCHC 33.6 LAB L100.1810 11.6-14.6 % Normal RDW CV 12.5 LAB L100.1820 35.1-43.9 fl Normal RDW SD 41.7 LAB L100.1900 150-450 K/mm3 Normal PLT 389 LAB L100.2000 6.2-12.0 fl Normal MPV 9.3 LAB L100.2100 47-70 % Normal NEUT% 61.0 LAB L100.2200 19-41 % Normal LY% 30.3 LAB L100.2300 0-10 % Normal MONO% 7.6 LAB L100.2400 0-5 % Normal EO% 0.7 LAB L100.2500 0-1 % Normal BASO% 0.3 LAB L100.2550 0.0-0.9 % Normal IM GRAN % 0.100 Result Comment: IG% - Immature Granulocytes (promyelocytes, myelocytes and metamyelocytes) > 1% indicates that a LEFT SHIFT is Present. LAB L100.2620 2.0-7.7 X10 3/uL Normal Absolute Neut 4.5 LAB L100.2720 0.83-4.51 X10 3/ul Normal Absolute Lymph 2.23 Performed By: #### L100.0100 #### [facility] [address] [place], [address] VITAMIN D,25 HYDROXY Collected: 11/08/2017 Status: F Source: JACQUE 10:17 AM [facility] [place], [place] REPOSITORY TYPE CODE TESTS RESULT OUT OF RANGE REFERENCE UNITS LAB L506.1000 29.95-100.01 ng/mL Normal Vitamin D 54.9 25-OH Result Comment: Vitamin D 25(OH) Status Range Deficiency <20 ng/mL (50nmol/L) Insuffciency 20 - 30 ng/mL (50 - 75 nmol/L) Sufficiency 30 - 100 ng/mL (75 - 250 nmol/L) Toxicity >100 ng/mL (>250 nmol/L) Performed By: #### L506.1000 #### [facility] [address] [place], [address] BASIC METABOLIC Collected: 11/08/2017 Status: F Source: JACQUE PROFILE (BMP) 10:17 AM [facility] [place], [place] REPOSITORY TYPE CODE TESTS RESULT OUT OF RANGE REFERENCE UNITS LAB L501.0100 74-106 mg/dL Normal GLU 93 Result Comment: Please note revised GLUCOSE reference range effective 2017. LAB L501.1000 7-18 mg/dL Normal BUN 7 LAB L501.1100 0.55-1.02 mg/dL Normal CREAT,SERUM 0.60 Result Comment: The validity of the calculated GFR AND GFRAA in patients over 70 years has not been determined. Clinical correlation is essential. LAB L501.1110 >60 mL/min Normal EST GFR 104 Result Comment: Non- GFR Calc LAB L501.1115 >60 mL/min Normal EST GFR - AA 126 Result Comment: GFR Calc LAB L501.1300 10-20 RATIO Normal BUN/CRE 11.7 LAB L501.2200 8.5-10.1 mg/dL CA Normal 8.9 LAB L501.5300 136-145 mmol/L NA Normal 136 LAB L501.5600 3.5-5.1 mmol/L Low K 3.3 LAB L501.5900 98-107 mmol/L CL Normal 99 LAB L501.6100 21.0-32.0 mmol/L Normal CO2 29.0 LAB L501.6200 5-15 Normal GAP 8 Performed By: #### L500.2500, L501.9520, L506.0400 #### [facility] [address] [place], [place], [address] THYROID STIM HORMONE Collected: 11/08/2017 Status: F Source: JACQUE (TSH) 10:17 AM [facility] [place], [place] REPOSITORY TYPE CODE TESTS RESULT OUT OF RANGE REFERENCE UNITS LAB L501.9520 0.358-3.74 uIU/mL Normal TSH 1.47 Performed By: #### L500.2500, L501.9520, L506.0400 #### [facility] [address] [place], [address] T4 FREE DIRECT Collected: 11/08/2017 Status: F Source: JACQUE 10:17 AM [facility] [place] [place] REPOSITORY TYPE CODE TESTS RESULT OUT OF RANGE REFERENCE UNITS LAB L506.0400 0.76-1.46 ng/dL Normal T4 FREE 1.02 DIRECT Performed By: #### L500.2500, L501.9520, L506.0400 #### [facility] [address] [place], [address] ALLERGIES ALLERGIES DATE TYPE / CODE NAME / CODE REACTION SEVERITY SOURCE Drug Sulfa (Sulfonamide Diarrhea Unknown [place] 8 Allergy/[id number] Antibiotics)/F0010 [facility] (SNOMED CT) [address](RXNORM) Hospital Repository Miscellaneous BAND AID Rash Unknown [place] 8 Allergy/[id number] [facility] (SNOMED CT) Hospital Repository DRUG SIMVASTATIN INTOLERANCE [place] [facility] INGREDI/[id number] Clinic Other (SNOMED CT) [place] Repository DRUG VALSARTAN INTOLERANCE [place] [facility] INGREDI/[id number] Clinic Other (SNOMED CT) [place] Rep[facility] DRUG SULFABENZAMIDE RASH [place] [facility] INGREDI/[id number] Clinic Other (SNOMED CT) [place] Rep[facility] DRUG FEXOFENADINE HCL Vomiting [place] [facility] INGREDI/[id number] Clinic Other (SNOMED CT) [place] Rep[facility] DRUG/[id number](SN AMOXICILLIN-POT DIARRHEA [place] [address]) CLAVULANATE Clinic Other [place] Rep[facility] DRUG ATORVASTATIN [place] [facility] INGREDI/[id number] CALCIUM Clinic Other (SNOMED CT) [place] [facility] DRUG LISINOPRIL RASH [place] [facility] INGREDI/[id number] Clinic Other (SNOMED CT) [place] [facility] DRUG SULINDAC HIVES [place] [facility] INGREDI/[id number] Clinic Other (SNOMED CT) [place] Rep[facility] ENCOUNTERS ENCOUNTERS ADMIT/DISCHARGE ACCOUNT ADMITTING ENCOUNTER LOCATION SOURCE NUMBER CLASS 06/03/2018 [id number] BRITT, [facility] Other [place] Repository 05/27/2018 [id number] [facility] ing:BFHLAB Repository 05/20/2018/05/20/[id number] Main [place] Repository 05/16/2018/06/02/[id number] Repository 05/16/2018/05/16/[id number] Repository 01/19/2018/01/20/20 [id number] Ambulatory BMSBuilding:B [place] 18 MS.[facility] Repository 12/29/2017/12/30/19 [id number] Ambulatory BMSBuilding:B [place] 18 MS.[facility] Repository 12/23/2017/12/24/19 [id number] Ambulatory [address] ing:SDC Repository 12/23/2017 [id number] Ambulatory BMSBuilding:B [place] MS.CF.[facility] Repository 11/24/2017/11/25/19 [id number] Ambulatory BMSBuilding:B [place] 18 MS.[facility] Repository 11/22/2017 [id number] Ambulatory [facility] Hospital ing:LAB.FUTUR Repository E 11/08/2017 [id number] [facility] ing:BFHLAB Repository PAYERS PAYERS ENCOUNTER GUARANTOR PAYER SUBSCRIBER SOURCE 05/27/2018 NELLY W Primary NELLY W [place] [id number] Insurance:MEDICARE ABBOTTDOB: [facility] PART A BPolicy Number: [id number] [id number] Repository [place] Date:2018-05-27 71939Tit: () 05/27/2018 Secondary NELLY W [place] Insurance:HUMANA ABBOTTDOB: Community COMMERCIALPolic [id number] Hospital Number: Repository [id number] Date:[id number] [address] [place] [address]WJ: 05/27/2018 Tertiary NOT GIVENUNK [place] Insurance:SELF PAY [facility] Number: Effective Repository Date:2018-05-27 01/19/2018 JAKI E Primary NELLY W [place] [id number] Insurance:MEDICARE ABBOTTDOB: Community [employer] PART A BPolicy Number: [id number] [facility] [id number] Repository [place] Date:2017-12-29 78700Mxe: () 01/19/2018 Secondary NELLY W [place] Insurance:HUMANA ABBOTTDOB: [facility] [id number] Hospital Number: Repository [id number] Date:[id number] [phone]: 01/19/2018 Tertiary NOT GIVENUNK [place] Insurance:SELF PAY [facility] Number: Effective Repository Date:2018-01-18 12/29/2017 JAKI E Primary NELLY W [place] [id number] Insurance:MEDICARE ABBOTTDOB: Community [employer] PART A BPolicy Number: [id number] [facility] [id number] Repository [place] Date:2017-12-24 84396Dtt: () 12/29/2017 Secondary NELLY W [place] Insurance:HUMANA ABBOTTDOB: [facility] [id number] Hospital Number: Repository [id number] Date:[id number] [phone]: 12/29/2017 Tertiary NOT GIVENUNK [place] Insurance:SELF PAY [facility] Number: Effective Repository Date:2017-12-29 12/23/2017 JAKI E Primary NELLY W [place] [id number] Insurance:MEDICARE ABBOTTDOB: Community [employer] PART A BPolicy Number: [id number] [id number] Repository [place] Date:2017-12-09 39539Hrd: () 12/23/2017 Secondary NELLY W [place] Insurance:HUMANA ABBOTTDOB: Community COMMERCIALPolicy [id number] Hospital Number: Repository [id number] Date:[id number] [address] [place] [address]IW: 12/23/2017 Tertiary NOT GIVENUNK [place] Insurance:SELF PAY [facility] Number: Effective Repository Date:2017-12-09 12/23/2017 JAKI E Primary NELLY W [place] [id number] Insurance:MEDICARE ABBOTTDOB: Community [employer] PART A olicy Number: [id number] Champion [facility] Medical Center [id number] Repository [place] Date:2017-12-09 80235Hia: () 12/23/2017 Secondary NELLY W [place] Insurance:HUMANA ABBOTTDOB: [facility] [id number] Hospital Number: Repository [id number] Date:3448-43-65MG [address] [place] [phone]: 12/23/2017 Tertiary NOT GIVENUNK [place] Insurance:SELF PAY [facility] Number: Effective Repository Date:2017-12-23 11/24/2017 JAKI E Primary NELLY W [place] [id number] Insurance:MEDICARE ABBOTTDOB: Community [employer] PART A olicy Number: [id number] Champion Regional Medical Center [id number] Repository [facility], [place] Date:2017-11-11 59226Rfs: () 11/24/2017 Secondary NELLY W [place] Insurance:HUMANA ABBOTTDOB: Community COMMERCIALPolicy [id number] Hospital Number: Repository [id number] Date:3384-88-87IG [address] [place] [id number]: 11/24/2017 Tertiary NOT GIVENUNK [place] Insurance:SELF PAY [facility] Hospital Number: Effective Repository Date:2017-11-22 11/22/2017 JAKI E Primary NELLY W [place] [id number] Insurance:MEDICARE ABBOTTDOB: Community [employer] PART A BPolicy Number: [id number] [facility] Center [id number] Repository [facility], [place] Date:2017-11-09 13453Szk: () 11/22/2017 Secondary NELLY W [place] Insurance:HUMANA ABBOTTDOB: Community COMMERCIALPolicy [id number] Hospital Number: Repository [id number] Date:[id number] [address]EO: 11/22/2017 Tertiary NOT GIVENUNK [place] Insurance:SELF PAY [facility] Hospital Number: Effective Repository Date:2017-11-09 11/08/2017 JAKI E Primary NELLY W [place] [id number] Insurance:MEDICARE ABBOTTDOB: Community [employer] PART A BPolicy Number: [id number] [facility] [id number] Repository [place] Date:2017-11-08 19739Zjr: () 11/08/2017 Secondary NELYL W [place] Insurance:HUMANA ABBOTTDOB: Community COMMERCIALPolicy [id number] Hospital Number: Repository [id number] Date:9947-70-61EL [address] [place] [phone]: 11/08/2017 Tertiary NOT GIVENUNK [place] Insurance:SELF PAY [facility] Hospital Number: Effective Repository Date:2017-11-08
== END ==
PROVIDERS: Family Provider Family Medicine; PCP Family Medicine; Visit Provider Family Medicine
DX: I10 Essential (primary) hypertension (principal); F41.9 Anxiety disorder, unspecified; E87.6 Hypokalemia; R53.83 Other fatigue
CPT/HCPCS: 36415; 80048; 84443; 85025

== ENCOUNTER → 2018-06-10 10:30 | Outpatient (CLI) | payer MEDICARE, OTHER, SELFPAY ==
[2018-06-10 12:38] LABS: Anion Gap 12 (5-15); BUN 7 mg/dL (7-18); BUN/Creat Ratio 11.1 RATIO (10-20); Calcium,Total 9.2 mg/dL (8.5-10.1); Chloride 102 mmol/L (98-107); Creatinine, Serum 0.63 mg/dL (0.55-1.02); EST Glomerular Filtration Rate 98 mL/min (>60); Est Glom Filt Rate - Afr Amer 119 mL/min (>60); Glucose 119 mg/dL (74-106); Potassium 3.3 mmol/L (3.5-5.1); Sodium Level 139 mmol/L (136-145)
== END ==
PROVIDERS: Family Provider Family Medicine; PCP Family Medicine; Visit Provider Family Medicine
DX: I10 Essential (primary) hypertension (principal)
CPT/HCPCS: 36415; 80048

== ENCOUNTER → 2018-07-01 10:04 | Outpatient (CLI) | payer MEDICARE, OTHER, SELFPAY ==
[2018-07-01 12:24] LABS: Anion Gap 11 (5-15); BUN 8 mg/dL (7-18); BUN/Creat Ratio 13.2 RATIO (10-20); Calcium,Total 9.1 mg/dL (8.5-10.1); Chloride 102 mmol/L (98-107); Creatinine, Serum 0.61 mg/dL (0.55-1.02); EST Glomerular Filtration Rate 102 mL/min (>60); Est Glom Filt Rate - Afr Amer 123 mL/min (>60); Glucose 110 mg/dL (74-106); Potassium 3.5 mmol/L (3.5-5.1); Sodium Level 138 mmol/L (136-145)
== END ==
PROVIDERS: Family Provider Family Medicine; PCP Family Medicine; Visit Provider Family Medicine
DX: E87.6 Hypokalemia (principal)
CPT/HCPCS: 36415; 80048

== ENCOUNTER → 2019-01-12 12:36 | Outpatient (CLI) | payer MEDICARE, OTHER, SELFPAY ==
--- NOTE | 2019-01-12 12:39 | BI_ITS ---
MAMMOGRAPHY - BILATERAL SCREENING REASON FOR EXAM: Female, 73 years old. Routine annual screening examination. PERTINENT HISTORY: Aunt with breast cancer. Remote right excisional breast biopsy. TECHNIQUE: Digital bilateral breast karen (3D mammographic acquisition) in the CC and MLO projections. 2-D mediolateral oblique (MLO) and craniocaudad (CC) views of both breasts were obtained. CAD: Full Field Digital Mammography with Computer Added Detection was performed. COMPARISON: Comparison is made with prior examination dated November 04, 2016 and outside examination dated November 08, 2015. FINDINGS: Breast Composition: There are scattered areas of fibroglandular density. The tissue is in the retroareolar region of both breasts. There are no dominant masses or suspicious calcifications. No other significant abnormalities are identified. There has been no significant change since the prior study. BI/SCREEN MAMM (CAD) W/KAREN BILAT IMPRESSION: Stable bilateral screening mammogram. Yearly follow-up mammogram recommended. (A) ASSESSMENT CATEGORY: BIRADS Category 1: Negative. A letter regarding these results will be sent to the patient by the facility within 30 days. Approximately 10% of breast cancers are not detected by mammography. A normal mammogram should not delay biopsy of a clinically suspicious abnormality. [id number] Electronically Signed: Jesus Manuel Pederson, at 15:35 EDT , Service support ,
== END ==
PROVIDERS: Family Provider Family Medicine; PCP Family Medicine; Referring Provider Family Medicine; Visit Provider Family Medicine
DX: Z12.31 Encounter for screening mammogram for malignant neoplasm of breast (principal); Z80.3 Family history of malignant neoplasm of breast
CPT/HCPCS: 77063; 77067

== ENCOUNTER → 2020-01-12 10:52 | Outpatient (CLI) | payer MEDICARE, OTHER, SELFPAY ==
--- NOTE | 2020-01-12 11:06 | RAD_ITS ---
STUDY: X-RAY - LUMBAR SPINE REASON FOR EXAM: Female, 74 years old. Low back pain after a fall in November TECHNIQUE: 5 view(s) of the lumbar spine were obtained including oblique views. COMPARISON: None FINDINGS: There is straightening of the normal lumbar lordosis. There is a mild dextroscoliosis of the lumbar spine. Minimal anterior listhesis of L4 on L5. There is irregularity along the anterior superior endplate of the L4 vertebrae. This may represent a subacute compression fracture. There is multi-level degenerative disc disease with multi-level disc space narrowing. Facet joint osteoarthritis. There is atherosclerotic calcification of the abdominal aorta without a demonstrated aneurysm. RAD/L/S Spine Min 4 Views IMPRESSION: Degenerative changes of the spine, as detailed above. Irregularity is seen along the anterior superior endplate of the L4 vertebrae. This may represent a subacute fracture. Facet joint osteoarthritis. Minimal anterior listhesis of L4 on L5. Electronically Signed: Jesus Manuel Pederson, at 13:48 EDT , Service support ,
--- NOTE | 2020-01-12 11:15 | RAD_ITS ---
STUDY: X-RAY - SACRUM/COCCYX REASON FOR EXAM: Female, 74 years old. Coccyx pain after fall TECHNIQUE: 3 view(s) of the sacrum and coccyx were obtained. COMPARISON: None. FINDINGS: There is degenerative arthrosis of the bilateral sacroiliac joints. Normal visualized sacral ala and fused sacral bodies. Normal sacrococcygeal junction with a normal angulation. Normal coccygeal segments. The presacral soft tissue structures are unremarkable. RAD/Sacrum-Coccyx min 2 Views IMPRESSION: Mild degenerative changes of the sacroiliac joints bilaterally. Electronically Signed: Jesus Manuel Pederson, at 13:49 EDT , Service support ,
== END ==
PROVIDERS: PCP Family Medicine; Referring Provider Family Medicine; Visit Provider Family Medicine
DX: M54.5 Low back pain (principal); M53.3 Sacrococcygeal disorders, not elsewhere classified; Z91.81 History of falling
CPT/HCPCS: 72110; 72220

== ENCOUNTER → 2020-02-01 15:12 | Outpatient (CLI) | payer MEDICARE, OTHER, SELFPAY ==
[2020-02-01 17:03] LABS: Absolute Lymphocyte Count 3.03 X10^3/uL (0.83-4.51); Absolute Neutrophil Count 5.6 X10^3/uL (2.0-7.7); Basophil# 0.03 X10^3/uL; Basophil% 0.3 % (0-1); Eosinophils% 1.1 % (0-5); Hematocrit 42.5 % (37-47); Lymphocyte # 3.03 X10^3/ul (4.0); Mean Corp Hgb Conc 32.9 g/dL (32-36); Mean Corpuscular Hgb 30.6 pg (27.0-32.0); Mean Corpuscular Volume 92.8 fL (81-99); Mean Platelet Vol. 9.1 fl (6.2-12.0); Monocyte# 0.73 X10^3/uL; Monocyte% 7.7 % (0-10); NRBC Flagged by Analyzer 0 % (0-5); Neutrophil # 5.56 X10^3/uL (2.7-7.7); Neutrophil % 58.7 % (47-70); Platelet Count 412 K/mm3 (150-450); RBC Distribution Width CV 12.3 % (11.6-14.6); RBC Distribution Width SD 42.3 fl (35.1-43.9); Red Blood Count 4.58 M/mm3 (4.2-5.4); White Blood Count 9.5 K/mm3 (4.4-11.0)
[2020-02-01 17:34] LABS: Thyroid Stim Hormone (TSH) 1.68 uIU/mL (0.358-3.74)
[2020-02-02 08:29] LABS: Vitamin B12 > 2000 pg/mL (211-911)
== END ==
PROVIDERS: PCP Family Medicine; Visit Provider Family Medicine
DX: R41.3 Other amnesia (principal)
CPT/HCPCS: 36415; 82607; 84443; 85025

== ENCOUNTER → 2020-02-09 16:12 | Outpatient (CLI) | payer MEDICARE, SELFPAY ==
--- NOTE | 2020-02-09 16:15 | MRI_ITS ---
STUDY: MRI LUMBAR SPINE WITHOUT CONTRAST REASON FOR EXAM: Female, 75 years old. Lobe to mid back after trauma fall TECHNIQUE: Standardized fat and water weighted pulse sequences were obtained in the sagittal and axial planes. COMPARISON: January 12 2020 plain films FINDINGS: Please note that MR has limitations at evaluating acute spinal fractures. If question of acute fracture due to fall is present CT is the study of choice, especially in adults over age 50 with expected osteopenia and degeneration. Plain films are less accurate. Lumbar spine is intact and aligned with normal marrow. There is chronic superior L4 endplate degeneration. There is marrow edema in the left greater than right facet L4-L5 and pedicle joints. There is left joint effusion. Both facets are degenerated chronically. Conus medullary terminates at T12. Cauda equina is normal with patent thecal sac. Paraspinous soft tissues are normal. SI joints are not fully included to render diagnosis. Aorta is of normal caliber. There are multilevel mild scattered foraminal stenoses, without moderate or high-grade stenosis. Lateral recesses are patent. MRI/Spine Lumbar (Routine) IMPRESSION: 1. See above discussion regarding possibility of fracture after trauma. 2. Left L5-S1 posterior element edema, this can be due to acute trauma and/or acute reactive degenerative change. 3. Patent canal, no neural compression. Electronically Signed: Josep Bolaños, at 21:38 EDT Tel , Service support ,
== END ==
PROVIDERS: PCP Family Medicine; Referring Provider Orthopaedic Surgery; Visit Provider Orthopaedic Surgery
DX: M54.16 Radiculopathy, lumbar region (principal)
CPT/HCPCS: 72148

== ENCOUNTER → 2020-05-28 14:38 | Outpatient (CLI) | payer MEDICARE, OTHER, SELFPAY ==
[2020-04-29 14:02] VITALS: BMI 25.4
--- NOTE | 2020-05-28 14:48 | CT_ITS ---
STUDY: CT LEFT KNEE WITHOUT CONTRAST REASON FOR EXAM: Female, 75 years old. Left knee pain since falling 10/2019, prior replacement 2018. MAR protocol used. RADIATION DOSAGE (If Supplied By Facility): CTDIvol = ( 15.35 ) mGy, DLP = ( 450.93 ) mGycm TECHNIQUE: Transaxial CT imaging of the knee was performed. Coronal and sagittal images were reformatted. Individualized dose optimization techniques were used for this CT. COMPARISON: None. FINDINGS: Tricompartmental knee prosthetic components demonstrate good bony contact and alignment. No demonstrated loosening on the current study. No lucency is seen at the bone hardware interface. No demonstrated cortical erosion or bony destruction or periosteal reaction. No acute fracture is seen. No demonstrated subsidence. The muscles and soft tissues are unremarkable. A tiny joint effusion is present. Normal tibiofibular articulation. The bony structures are demineralized. The quadriceps tendon is grossly intact. The patellar tendon is grossly into. Unremarkable Hoffa''s fat pad. CT/Extremity Lower without Contra IMPRESSION: No demonstrated hardware complications. No occult fracture. Electronically Signed: Raul De Los Santos MD at 23:38 EST , Service support ,
== END ==
PROVIDERS: PCP Family Medicine; Referring Provider Physician Assistant; Visit Provider Physician Assistant
DX: Z96.652 Presence of left artificial knee joint (principal)
CPT/HCPCS: 73700

== ENCOUNTER → 2020-10-09 15:59 | Outpatient (CLI) | payer MEDICARE, OTHER, SELFPAY ==
[2020-04-29 14:02] VITALS: BMI 25.4
[2020-10-09 17:40] LABS: Absolute Lymphocyte Count 2.71 X10^3/uL (0.83-4.51); Absolute Neutrophil Count 3.9 X10^3/uL (2.0-7.7); Basophil# 0.04 X10^3/uL; Basophil% 0.5 % (0-1); Eosinophils% 1.4 % (0-5); Hematocrit 42.6 % (37-47); Lymphocyte # 2.71 X10^3/ul (0.83-4.51); Lymphocyte % 36.9 % (19-41); Mean Corp Hgb Conc 32.9 g/dL (32-36); Mean Corpuscular Hgb 31.1 pg (27.0-32.0); Mean Corpuscular Volume 94.7 fL (81-99); Mean Platelet Vol. 9.6 fl (6.2-12.0); Monocyte# 0.55 X10^3/uL; Monocyte% 7.5 % (0-10); NRBC Flagged by Analyzer 0 % (0-5); Neutrophil # 3.93 X10^3/uL (2.7-7.7); Neutrophil % 53.6 % (47-70); Platelet Count 380 K/mm3 (150-450); RBC Distribution Width CV 12.1 % (11.6-14.6); RBC Distribution Width SD 42.2 fl (35.1-43.9); White Blood Count 7.3 K/mm3 (4.4-11.0)
[2020-10-09 18:29] LABS: Vitamin D,25 Hydroxy 56.4 ng/mL
[2020-10-09 18:36] LABS: ALB/GLOB Ratio 1.1 RATIO (0.9-2.4); AST(SGOT) 19 U/L (15-37); Alanine Aminotransfer ALT/SGPT 20 U/L (13-56); Alkaline Phosphatase 79 U/L (45-117); Anion Gap 8 (5-15); BUN 8 mg/dL (7-18); BUN/Creat Ratio 15.1 RATIO (10-20); Calcium,Total 9.3 mg/dL (8.5-10.1); Chloride 105 mmol/L (98-107); Creatinine, Serum 0.53 mg/dL (0.55-1.02); EST Glomerular Filtration Rate 119 mL/min (>60); Est Glom Filt Rate - Afr Amer 144 mL/min (>60); Globulin 3.6 g/dL (2.2-4.2); Glucose 83 mg/dL (74-106); Magnesium 2.4 mg/dL (1.6-2.6); Potassium 3.2 mmol/L (3.5-5.1); Protein, Total 7.6 g/dL (6.4-8.2); Sodium Level 141 mmol/L (136-145); Thyroid Stim Hormone (TSH) 1.27 uIU/mL (0.358-3.74)
== END ==
PROVIDERS: PCP Internal Medicine; Visit Provider Internal Medicine
DX: E55.9 Vitamin D deficiency, unspecified (principal); I10 Essential (primary) hypertension; F17.200 Nicotine dependence, unspecified, uncomplicated
CPT/HCPCS: 36415; 80053; 82306; 83735; 84443; 85025

== ENCOUNTER → 2020-10-30 10:42 | Outpatient (CLI) | payer MEDICARE, OTHER, SELFPAY ==
[2020-10-30 09:19] VITALS: BMI 23.4
[2020-11-04 04:06] LABS: Aldosterone, Serum 10.4 ng/dL (0.0-30.0)
[2020-11-07 14:56] LABS: Renin, Plasma 1.621 ng/mL/hr (0.167-5.380)
== END ==
PROVIDERS: PCP Internal Medicine; Referring Provider Internal Medicine Cardiovascular Disease; Visit Provider Internal Medicine Cardiovascular Disease
DX: I10 Essential (primary) hypertension (principal); E78.5 Hyperlipidemia, unspecified; E87.6 Hypokalemia
CPT/HCPCS: 36415; 82088; 84244

== ENCOUNTER → 2020-11-12 14:38 | Outpatient (CLI) | payer MEDICARE, OTHER, SELFPAY ==
[2020-10-30 09:19] VITALS: BMI 23.4
--- NOTE | 2020-11-12 14:39 | ECHOD_ITS ---
Reason For Study: HTN Procedure This was a 2D Doppler, Color Flow transthoracic echocardiogram. Exam performed in department. Left Ventricle Normal LV size. Left ventricular systolic function is normal. The estimated ejection fraction is 60 %. Stage 1 diastolic dysfunction. No regional wall motion abnormalities noted. Right Ventricle Normal RV size. Normal systolic function. Atria Normal left atrium. Normal right atrium. Mitral Valve Normal mitral valve. Mild (1+) eccentric mitral valve insufficiency. Tricuspid Valve Normal tricuspid valve. Mild (1+) tricuspid valve insufficiency. Pulmonary artery systolic pressure is 30 mmHg. Aortic Valve Normal aortic valve. Trisinus/trileaflet aortic valve. Mild (1+) eccentric aortic valve insufficiency. Pulmonic Valve Normal pulmonic valve. Great Vessels Normal aortic root. The pulmonary artery is normal size. Normal inferior vena cava. Pericardium/Pleural No pericardial effusion. MMode/2D Measurements & Calculations LVIDd: 3.4 cm IVSd: 1.2 cm LA dimension: 3.1 cm LVIDs: 1.9 cm LVPWd: 1.1 cm FS: 44.8 % LAV(MOD-sp4): 36.6 ml LA A4 area: 14.3 cm2 RA A4 area: 10.8 cm2 Time Measurements MV dec time: 0.27 sec Doppler Measurements & Calculations MV E max anuj: 92.7 cm/sec Lat Peak E' Anuj: 9.2 cm/sec Med Peak E' Anuj: 7.6 cm/sec MV A max anuj: 108.4 cm/sec E/E' lat: 10.1 E/E' med: 12.3 MV E/A: 0.86 MV V2 max: 110.7 cm/sec MV P1/2t max anuj: 104.0 cm/sec Ao V2 max: 146.6 cm/sec MV max P.9 mmHg MV P1/2t: 70.5 msec Ao max P.6 mmHg MV V2 mean: 63.0 cm/sec MV dec slope: 432.3 cm/sec2 MV mean P.9 mmHg MVA(P1/2t): 3.1 cm2 MV V2 VTI: 29.7 cm AI max anuj: 378.8 cm/sec LV V1 max: 99.8 cm/sec PA V2 max: 102.1 cm/sec AI max P.4 mmHg LV V1 max P.0 mmHg AI dec slope: 444.9 cm/sec2 AI P1/2t: 249.4 msec TR max anuj: 250.3 cm/sec TR max P.1 mmHg ECHO/Echo Complete Interpretation Summary Normal LV size. Left ventricular systolic function is normal. The estimated ejection fraction is 60 %. Mild (1+) eccentric mitral valve insufficiency. Stage 1 diastolic dysfunction. Pulmonary artery systolic pressure is 30 mmHg. Ordering Physician: Luís Jacobo Referring Physician: Katarina [place] M.D. Performed By: Jacob Ruff RCS
== END ==
PROVIDERS: PCP Internal Medicine; Referring Provider Internal Medicine Cardiovascular Disease; Visit Provider Internal Medicine Cardiovascular Disease
DX: I10 Essential (primary) hypertension (principal); I34.0 Nonrheumatic mitral (valve) insufficiency
CPT/HCPCS: 93306

== ENCOUNTER → 2021-01-29 13:31 | Outpatient (CLI) | payer MEDICARE, OTHER, SELFPAY ==
[2021-01-29 15:15] LABS: Anion Gap 3 (5-15); BUN 10 mg/dL (7-18); BUN/Creat Ratio 21.2 RATIO (10-20); Calcium,Total 9.4 mg/dL (8.5-10.1); Chloride 105 mmol/L (98-107); Creatinine, Serum 0.47 mg/dL (0.55-1.02); EST Glomerular Filtration Rate 136 mL/min (>60); Est Glom Filt Rate - Afr Amer 164 mL/min (>60); Glucose 88 mg/dL (74-106); Potassium 3.5 mmol/L (3.5-5.1); Sodium Level 137 mmol/L (136-145)
== END ==
PROVIDERS: PCP Internal Medicine; Visit Provider Nurse Practitioner Gerontology
DX: E87.6 Hypokalemia (principal)
CPT/HCPCS: 36415; 80048

== ENCOUNTER → 2022-05-06 | Outpatient (CLI) | payer MEDICARE, OTHER, SELFPAY ==
[2022-05-06 16:43] LABS: Absolute Neutrophil Count 4.7 X10^3/uL (2.0-7.7); Basophil# 0.02 X10^3/uL; Basophil% 0.2 % (0-1); Eosinophil# 0.09 X10^3/uL; Eosinophils% 1.1 % (0-5); Hematocrit 40.4 % (37-47); Hemoglobin 13.4 g/dL (12.0-15.0); Lymphocyte % 33.7 % (19-41); Mean Corp Hgb Conc 33.2 g/dL (32-36); Mean Corpuscular Hgb 32.2 pg (27.0-32.0); Mean Corpuscular Volume 97.1 fL (81-99); Mean Platelet Vol. 9.6 fl (6.2-12.0); Monocyte# 0.71 X10^3/uL; Monocyte% 8.5 % (0-10); NRBC Flagged by Analyzer 0 % (0-5); Neutrophil # 4.68 X10^3/uL (2.7-7.7); Neutrophil % 56.3 % (47-70); Platelet Count 349 K/mm3 (150-450); RBC Distribution Width CV 12.3 % (11.6-14.6); RBC Distribution Width SD 44.2 fl (35.1-43.9); Red Blood Count 4.16 M/mm3 (4.2-5.4); White Blood Count 8.3 K/mm3 (4.4-11.0)
[2022-05-06 16:56] LABS: AST(SGOT) 16 U/L (15-37); Alanine Aminotransfer ALT/SGPT 20 U/L (13-56); Albumin, Serum 3.7 g/dL (3.2-5.0); Alkaline Phosphatase 65 U/L (45-117); Anion Gap 9 (5-15); BUN 11 mg/dL (7-18); BUN/Creat Ratio 23.2 RATIO (10-20); Calcium,Total 9.1 mg/dL (8.5-10.1); Chloride 104 mmol/L (98-107); Cholesterol 219 mg/dL (200); Creatinine, Serum 0.47 mg/dL (0.55-1.02); EST Glomerular Filtration Rate 135 mL/min (>60); Est Glom Filt Rate - Afr Amer 163 mL/min (>60); Globulin 3.7 g/dL (2.2-4.2); Glucose 83 mg/dL (74-106); High Density Lipoprotein 64 mg/dL; Potassium 3.5 mmol/L (3.5-5.1); Protein, Total 7.4 g/dL (6.4-8.2); Sodium Level 138 mmol/L (136-145); Triglycerides 145 mg/dL; Very Low Density Lipoprotein 29 mg/dL (5-40)
== END | disposition home or self-care (01) ==
LOC: BIMLAB 14:55
PROVIDERS: PCP Internal Medicine; Referring Provider Physician Assistant; Visit Provider Physician Assistant
DX: F03.90 Unspecified dementia, unspecified severity, without behavioral disturbance, psychotic disturbance, mood disturbance, and anxiety (principal); R41.3 Other amnesia; E78.5 Hyperlipidemia, unspecified; E87.6 Hypokalemia; I10 Essential (primary) hypertension
CPT/HCPCS: 36415; 80053; 80061; 85025

== ENCOUNTER → 2023-04-26 | Outpatient (CLI) | payer MEDICARE, OTHER, SELFPAY ==
[2023-04-26 15:17] LABS: Absolute Neutrophil Count 5.1 X10^3/uL (2.0-7.7); Basophil# 0.02 X10^3/uL; Basophil% 0.3 % (0-1); Eosinophil# 0.03 X10^3/uL; Eosinophils% 0.4 % (0-5); Hematocrit 41.4 % (37-47); Hemoglobin 13.5 g/dL (12.0-15.0); Lymphocyte % 25.9 % (19-41); Mean Corp Hgb Conc 32.6 g/dL (32-36); Mean Corpuscular Hgb 31.5 pg (27.0-32.0); Mean Corpuscular Volume 96.7 fL (81-99); Mean Platelet Vol. 10.1 fl (6.2-12.0); Monocyte# 0.61 X10^3/uL; Monocyte% 7.9 % (0-10); NRBC Flagged by Analyzer 0 % (0-5); Neutrophil # 5.05 X10^3/uL (2.7-7.7); Neutrophil % 65.4 % (47-70); Platelet Count 341 K/mm3 (150-450); Red Blood Count 4.28 M/mm3 (4.2-5.4); White Blood Count 7.7 K/mm3 (4.4-11.0)
[2023-04-26 16:21] LABS: ALB/GLOB Ratio 1.1 RATIO (0.9-2.4); AST(SGOT) 19 U/L (15-37); Alanine Aminotransfer ALT/SGPT 19 U/L (13-56); Albumin, Serum 3.9 g/dL (3.2-5.0); Alkaline Phosphatase 63 U/L (45-117); Anion Gap 7 (5-15); BUN 11 mg/dL (7-18); BUN/Creat Ratio 16.8 RATIO (10-20); Calcium,Total 8.7 mg/dL (8.5-10.1); Chloride 107 mmol/L (98-107); Cholesterol 205 mg/dL (200); Creatinine, Serum 0.66 mg/dL (0.55-1.02); EST Glomerular Filtration Rate 92 mL/min (>60); Est Glom Filt Rate - Afr Amer 112 mL/min (>60); Globulin 3.6 g/dL (2.2-4.2); Glucose 111 mg/dL (74-106); High Density Lipoprotein 63 mg/dL; Potassium 3.1 mmol/L (3.5-5.1); Protein, Total 7.5 g/dL (6.4-8.2); Sodium Level 142 mmol/L (136-145); T4 Free Direct 0.93 ng/dL (0.76-1.46); Thyroid Stim Hormone (TSH) 1.17 uIU/mL (0.358-3.74); Triglycerides 100 mg/dL; Very Low Density Lipoprotein 20 mg/dL (5-40)
== END | disposition home or self-care (01) ==
LOC: BIMLAB 13:45
PROVIDERS: PCP Internal Medicine; Referring Provider Internal Medicine; Visit Provider Internal Medicine
DX: I10 Essential (primary) hypertension (principal)
CPT/HCPCS: 36415; 80053; 80061; 84439; 84443; 85025

== ENCOUNTER → 2023-06-10 | Outpatient (REF) | payer MEDICARE, OTHER, SELFPAY ==
--- OUTSIDE RECORDS SUMMARY | 2023-06-10 04:06 | XMS RPT_ITS | CCD ---
Author Name Unknown Address [address] [place] [address] Organization [facility] Care Team Providers Care Food Beverage Attendant Name Role Phone THONG SINGER Admitting Unavailable THONG SINGER Attending Unavailable Allergies Allergy Classification Reported Allergen(s) Allergy Type Date of Onset Reaction(s) Facility (1 source) atorvastatin; Translations: [ATORVASTATIN CALCIUM] Drug Allergy 5 [facility] Repository (1 source) fexofenadine; Translations: [FEXOFENADINE HCL] Drug Allergy 5 [facility] Repository (1 source) Lisinopril; Translations: [LISINOPRIL] Drug Allergy 5 [facility] Repository (1 source) Simvastatin; Translations: [SIMVASTATIN] Drug Allergy 9 [facility] Repository (1 source) Sulindac; Translations: [SULINDAC] Drug Allergy 5 [facility] Repository (1 source) valsartan; Translations: [VALSARTAN] Drug Allergy 6 [facility] Repository (1 source) AMOXICILLIN-POT CLAVULANATE; Translations: [AMOXICILLIN-POT CLAVULANATE] Propensity to adverse reactions to drug (disorder) 5 [facility] Repository (1 source) SULFABENZAMIDE; Translations: [SULFABENZAMIDE] Propensity to adverse reactions to drug (disorder) 6 [facility] Repository Problems Problem Classification Problem Date Documented Da te Episodic/Chronic Osteoarthritis (1 source) Primary osteoarthritis, left hand; Translations: [Primary osteoarthritis, left hand] Onset: 05-17-2018 Chronic Other connective tissue disease (1 source) Pain in left finger(s); Translations: [Pain in left finger(s)] Onset: 05-17-2018 Episodic Results Test Name Value Interpretation Reference Range Facil ity Encounters Encounter Date Encounter Type Care Provider Facility Start: 06-03-2018 Patient encounter procedure THONG SINGER [facility] Clinical Note 06-25-2020 Note Date & Type Note Facility 06-25-2020 Note Patient Outreach ([facility]) DANIA NOBLE ([id number]) 1945 F Date Time Provider Department 06/25/20 DAVIAN MORRISON During your visit today, we recorded the following information about you: Allergies As of Date: 06/25/2020 Noted Allergy Reaction LESLIE (FEXOFENADINE HCL) 01/13/2005 11 - Vomiting AUGMENTIN (AMOXICILLIN-POT CLAVUL*01/13/2005 6 - Diarrhea DIOVAN (VALSARTAN) 02/01/2006 5 - Intolerance Comments: excessive sweating LIPITOR (ATORVASTATIN CALCIUM) 01/13/2005 Comments: MYALGIA'S PRINIVIL (LISINOPRIL) 01/13/2005 2 - Rash 3 - Cough SULFABENZAMIDE 09/25/2005 2 - Rash SULINDAC 01/13/2005 4 - Hives ZOCOR (SIMVASTATIN) 04/10/2009 5 - Intolerance Date Reviewed: 08/25/2018 Reviewed by: Thong Singer - Fully Assessed Order(s):SARS-COVID VACCINE 1ST DOSE APPT [[id number]] Order #: [id number] FUTURE Prescriptions as of 06/25/2020 Sig: AMLODIPINE 5 MG TABLET Take 1 tablet by mouth once d* BIOTIN 5,000 MCG DISINTEGRATI* Take 1 tablet by mouth once d* POTASSIUM CHLORIDE ER 20 MEQ * Take 1 tablet by mouth three * HYDROCHLOROTHIAZIDE 25 MG TAB* Take 1 tablet by mouth once d* Patient taking differently: Take 12.5 mg by mouth once da* NORTRIPTYLINE 25 MG CAPSULE Take 1 capsule by mouth daily* LOSARTAN 100 MG TABLET Take 1 tablet by mouth once d* CHOLECALCIFEROL (VITAMIN D3) * Take 1 capsule by mouth twice* COENZYME Q10-RED YEAST RICE 6* take two tabs daily GARLIC TABLET pt takes 650mg daily B COMPLEX-VITAMIN B12 TABLET Take one(1) tablet daily. FOLIC ACID 1 MG TABLET Take one(1) tablet daily. OTC PRODUCT calcium 1800 daily FLAXSEED OIL Take one(1) tablet daily. VITAMIN B-6 100 MG TABLET Take one(1) tablet daily. DAILY MULTIVITAMIN TABLET Take one(1) tablet daily. Problem List As Of Date 06/25/2020 Noted Resolved BENIGN HYPERTENSION [I10] 03/05/2005 MYALGIA AND MYOSITIS NOS [[id number]] 03/05/2005 OSTEOPOROSIS NOS [M81.0] 03/05/2005 Esophageal reflux [K21.9] 03/05/2005 05/20/2018 INT DERANGEMENT KNEE NOS [M23.90] 08/25/2005 11/16/2005 SPRAIN SHOULDER/ARM NOS [RYF1680] 08/25/2005 06/08/2006 SHOULDER REGION DIS NEC [M25.819] 09/02/2005 SPRAIN CRUCIATE LIG KNEE [S83.509A] 10/07/2005 06/08/2006 LOC PRIM OSTEOART-L/LEG [M17.10] 11/16/2005 OPEN WOUND HAND-COMPLICAT [S61.409A] 12/21/2005 12/28/2005 FAMILY HX-CONDITION NEC [Z84.89] 06/08/2006 More... TOBACCO USE DISORDER [F17.200] 06/08/2006 FAMILY HX GI MALIGNANCY [Z80.0] 04/10/2008 More... Sebaceous cyst [L72.3] 08/02/2008 10/31/2010 Hyperlipidemia [E78.5] 04/10/2009 Pain in limb [M79.609] 09/24/2010 Dermatophytosis of nail [B35.1] 09/24/2010 Onychia and paronychia of toe [L03.039] 08/21/2011 Pain of left thumb [M79.645] 05/17/2018 More... 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 Encounter Status:Closed by EPIC, PRODUSER on 06/28/20 [facility] Summary Purpose Family History No Family History Records FoundNo Family History Records Found Advance Directives No Advanced Directives Records FoundNo Advanced Directives Records Found Additional Source Comments INFORMATION SOURCE (unrecogn ized section and content) DATE CREATED AUTHOR AUTHOR'S ANILA ESQUIVEL 06/05/2021 [facility] FOR RECORDS PERTAINING TO PATIENTS WHO ARE OR HAVE BEEN ENROLLED IN A CHEMICAL DEPENDENCY/SUBSTANCEABUSE PROGRAM, SOME INFORMATION MAY BE OMITTED. This clinical summary was aggregated from multiple sources. Caution should be exercised in using it in the provision of clinical care. This summary normalizes information from multiple sources, and as a consequence, information in this document may materially change the coding, format and clinical context of patient data. In addition, data may be omitted in some cases. CLINICAL DECISIONS SHOULD BE BASED ON THE PRIMARY CLINICAL RECORDS. [facility] [employer] [facility]. provides no warranty or guarantee of the accuracy or completeness of information in this document.
[2023-06-10 09:30] LABS: Hematocrit 37.3 % (37-47); Hemoglobin 12.1 g/dL (12.0-15.0); Mean Corp Hgb Conc 32.4 g/dL (32-36); Mean Corpuscular Hgb 31.3 pg (27.0-32.0); Mean Corpuscular Volume 96.4 fL (81-99); Mean Platelet Vol. 9.9 fl (6.2-12.0); Platelet Count 335 K/mm3 (150-450); RBC Distribution Width CV 12.3 % (11.6-14.6); RBC Distribution Width SD 44.1 fl (35.1-43.9); Red Blood Count 3.87 M/mm3 (4.2-5.4); White Blood Count 6.6 K/mm3 (4.4-11.0)
[2023-06-10 09:58] LABS: Anion Gap 4 (5-15); BUN 12 mg/dL (7-18); BUN/Creat Ratio 24.1 RATIO (10-20); Calcium,Total 8.7 mg/dL (8.5-10.1); Chloride 107 mmol/L (98-107); EST Glomerular Filtration Rate 127 mL/min (>60); Est Glom Filt Rate - Afr Amer 153 mL/min (>60); Glucose 89 mg/dL (74-106); Sodium Level 138 mmol/L (136-145)
== END ==
LOC: OLS.WCC 05:00
PROVIDERS: PCP Internal Medicine; Visit Provider Family Medicine
DX: F03.90 Unspecified dementia, unspecified severity, without behavioral disturbance, psychotic disturbance, mood disturbance, and anxiety (principal); I10 Essential (primary) hypertension; Z79.899 Other long term (current) drug therapy
CPT/HCPCS: 36415; 80048; 85027

== ENCOUNTER → 2023-09-08 | Outpatient (REF) | payer MEDICARE, OTHER, SELFPAY ==
[2023-09-08 07:39] LABS: Hematocrit 34.5 % (37-47); Mean Corp Hgb Conc 31.9 g/dL (32-36); Mean Corpuscular Hgb 30.5 pg (27.0-32.0); Mean Corpuscular Volume 95.6 fL (81-99); Mean Platelet Vol. 10.4 fl (6.2-12.0); Platelet Count 315 K/mm3 (150-450); RBC Distribution Width CV 12.7 % (11.6-14.6); RBC Distribution Width SD 44.3 fl (35.1-43.9); Red Blood Count 3.61 M/mm3 (4.2-5.4); White Blood Count 7.4 K/mm3 (4.4-11.0)
[2023-09-08 07:53] LABS: Valproic Acid (Depakene) Level 56 ug/mL (50-100)
[2023-09-08 07:58] LABS: Anion Gap 2 (5-15); BUN 22 mg/dL (7-18); BUN/Creat Ratio 39.4 RATIO (10-20); Calcium,Total 8.8 mg/dL (8.5-10.1); Chloride 106 mmol/L (98-107); Creatinine, Serum 0.56 mg/dL (0.55-1.02); EST Glomerular Filtration Rate 111 mL/min (>60); Est Glom Filt Rate - Afr Amer 134 mL/min (>60); Glucose 88 mg/dL (74-106); Sodium Level 139 mmol/L (136-145)
== END ==
LOC: OLS.WCC 05:00
PROVIDERS: PCP Internal Medicine; Visit Provider Family Medicine
DX: I10 Essential (primary) hypertension (principal); F03.90 Unspecified dementia, unspecified severity, without behavioral disturbance, psychotic disturbance, mood disturbance, and anxiety; Z79.899 Other long term (current) drug therapy
CPT/HCPCS: 36415; 80048; 80164; 85027

== ENCOUNTER → 2024-03-13 | Outpatient (REF) | payer MEDICARE, OTHER, SELFPAY ==
[2024-03-13 09:43] LABS: Hematocrit 37.3 % (37-47); Hemoglobin 11.8 g/dL (12.0-15.0); Mean Corp Hgb Conc 31.6 g/dL (32-36); Mean Corpuscular Hgb 31.9 pg (27.0-32.0); Mean Corpuscular Volume 100.8 fL (81-99); Mean Platelet Vol. 10.2 fl (6.2-12.0); Platelet Count 256 K/mm3 (150-450); RBC Distribution Width CV 12.2 % (11.6-14.6); RBC Distribution Width SD 45.7 fl (35.1-43.9); White Blood Count 5.9 K/mm3 (4.4-11.0)
[2024-03-13 10:11] LABS: Anion Gap 4 (5-15); BUN 26 mg/dL (7-18); BUN/Creat Ratio 51.6 RATIO (10-20); Calcium,Total 8.9 mg/dL (8.5-10.1); Chloride 112 mmol/L (98-107); EST Glomerular Filtration Rate 125 mL/min (>60); Est Glom Filt Rate - Afr Amer 151 mL/min (>60); Glucose 81 mg/dL (74-106); Potassium 3.7 mmol/L (3.5-5.1); Sodium Level 145 mmol/L (136-145)
[2024-03-13 10:36] LABS: Valproic Acid (Depakene) Level 36 ug/mL (50-100)
== END ==
LOC: OLS.WCC 04:00
PROVIDERS: PCP Internal Medicine; Referring Provider Family Medicine; Visit Provider Family Medicine
DX: F03.90 Unspecified dementia, unspecified severity, without behavioral disturbance, psychotic disturbance, mood disturbance, and anxiety (principal); I10 Essential (primary) hypertension; Z79.899 Other long term (current) drug therapy
CPT/HCPCS: 36415; 80048; 80164; 85027

== ENCOUNTER → 2024-06-07 05:00 | Outpatient (REF) | payer MEDICARE, OTHER, SELFPAY ==
[2024-06-07 06:53] LABS: Anion Gap 8 (5-15); BUN 18 mg/dL (7-18); BUN/Creat Ratio 37.3 RATIO (10-20); Chloride 116 mmol/L (98-107); Creatinine, Serum 0.48 mg/dL (0.55-1.02); EST Glomerular Filtration Rate 131 mL/min (>60); Est Glom Filt Rate - Afr Amer 159 mL/min (>60); Glucose 82 mg/dL (74-106); Potassium 3.1 mmol/L (3.5-5.1); Sodium Level 151 mmol/L (136-145)
== END ==
LOC: OLS.WCC 05:00
PROVIDERS: PCP Internal Medicine; Visit Provider Family Medicine
DX: Z79.899 Other long term (current) drug therapy (principal)
CPT/HCPCS: 36415; 80048